=== PATIENT | male | born 1940 | race Caucasian/White ===

== ENCOUNTER → 2023-09-18 07:13 | Outpatient (REF) | payer MEDICARE, OTHER, SELFPAY ==
[2023-09-18 08:58] LABS: Albumin 4.7 g/dl (3.5-5.0); Blood Urea Nitrogen 43 mg/dl (9-20); Calcium 9.8 mg/dl (8.4-10.2); Carbon Dioxide 24 mmol/L (22-30); Chloride 104 mmol/L (98-107); Glucose 158 mg/dl (70-99); Phosphorus 4.2 mg/dl (2.5-4.5); Potassium 4.8 mmol/L (3.5-5.1); Sodium 135 mmol/L (135-145); Uric Acid 5.5 mg/dl (3.5-8.5); eGFR 34.57
[2023-09-18 09:19] LABS: Glycohemoglobin (HgbA1c) 7.3 % (4.0-5.6)
== END ==
LOC: HWLAB 07:13
PROVIDERS: ATTENDING PHYSICIAN Specialist; FAMILY PHYSICIAN Internal Medicine
DX: N18.31 Chronic kidney disease, stage 3a (principal); E11.8 Type 2 diabetes mellitus with unspecified complications
CPT/HCPCS: 36415; 80069; 83036; 84550

== ENCOUNTER → 2023-09-21 07:11 | Outpatient (REF) | payer MEDICARE, OTHER, SELFPAY ==
[2023-09-21 10:10] LABS: Blood Urea Nitrogen 46 mg/dl (9-20); Calcium 10.1 mg/dl (8.4-10.2); Carbon Dioxide 26 mmol/L (22-30); Chloride 101 mmol/L (98-107); Glucose 161 mg/dl (70-99); Potassium 4.9 mmol/L (3.5-5.1); Sodium 138 mmol/L (135-145); eGFR 36.89
== END ==
LOC: HWLAB 07:11
PROVIDERS: ATTENDING PHYSICIAN Specialist; FAMILY PHYSICIAN Internal Medicine
DX: I10 Essential (primary) hypertension (principal); E87.1 Hypo-osmolality and hyponatremia; N17.9 Acute kidney failure, unspecified
CPT/HCPCS: 36415; 80048

== ENCOUNTER 2023-11-03 13:35 | Inpatient (IN) | payer MEDICARE, OTHER, SELFPAY ==
[2023-11-02] VITALS (13 sets, daily range): BP systolic 100–156; BP diastolic 65–80; PULSE 95–119; BMI 29.8
[2023-11-02 12:04] LABS: Glucose - Point of Care 206 mg/dl (70-99)
[2023-11-02 12:15] LABS: % Basophils 0.4 % (0-2); % Eosinophils 0.9 % (0-6); % Immature Granulocytes 0.8 % (0-0.5); % Monocytes 5.8 % (1.7-9.3); % Neutrophils 78.1 % (42.2-75.2); Absolute Eosinophils 0.1 10^3/uL (0-0.7); Absolute Immature Granulocytes 0.1 10^3/uL (0-0.05); Absolute Lymphocytes 1.3 10^3/uL (1.2-3.4); Absolute Monocytes 0.5 10^3/uL (0.1-0.6); Absolute Neutrophils 7.2 10^3/uL (1.4-6.5); Hematocrit 32.7 % (39.0-52.0); Hemoglobin 11.2 g/dL (13.0-18.0); Mean Corp Hgb Conc. 34.3 g/dL (33.0-37.0); Mean Corpuscular Hgb 30.9 pg (27.0-31.0); Mean Corpuscular Volume 90.3 fL (80.0-94.0); Mean Platelet Volume 11.9 fL (7.4-10.4); Nucleated Red Blood Cells % 0 % (-); Platelet Count 147 10^3/uL (130-400); Red Blood Cell Count 3.62 10^6/uL (4.70-6.10); Red Cell Dist. Width 13.9 % (11.5-14.5); White Blood Cell Count 9.2 10^3/uL (4.8-10.8)
--- NOTE | 2023-11-02 12:23 | EDRN ---
the pt is resting in stretcher in the lowest position, side rails up x2, call salmeron within reach, HOB elevated, the pt states that he feels drowsy, the pt was placed on 2L NC due to Sp02 dipping to the 80's, this RN placed the pt on 2L NC and the pt
came up to 96% then dropped back down to 92%, this RN titrated the 02 up to 4L NC and Sp02 came up to 96%, the pt has no c/o SOB, no c/o chest pain or chest pressure, provider notified of the pts oxygenation status, will continue to monitor the pt
closely
[2023-11-02 12:33] LABS: ALT (SGPT) 19 U/L (0-50); AST (SGOT) 28 U/L (17-59); Albumin 4.1 g/dl (3.5-5.0); Alkaline Phosphatase 86 U/L (38-126); Blood Urea Nitrogen 34 mg/dl (9-20); Calcium 9.4 mg/dl (8.4-10.2); Carbon Dioxide 17 mmol/L (22-30); Chloride 107 mmol/L (98-107); Estimated Creatinine Clearance 33 ml/min; Glucose 198 mg/dl (70-99); Potassium 4.3 mmol/L (3.5-5.1); Sodium 134 mmol/L (135-145); Total Bilirubin 0.8 mg/dl (0.2-1.3); Total Protein 6.4 g/dl (6.3-8.2); eGFR 39.51
[2023-11-02 12:43] LABS: Troponin I < 0.012 ng/ml
--- NOTE | 2023-11-02 14:35 | EDRN ---
the pt is resting in stretcher in the lowest position, side rails up x2, call salmeron within reach, HOB elevated, no s/s of distress, the pt still appears to be fatigued and states to this RN, 'I just feel tired', VS WNL, no c/o chest pain, no c/o SOB,
the pt is currently NST in the low 100's, the pt is currently still on 4L NC Sp02 100%, will continue to monitor the pt closely
[2023-11-02] MEDS: NSS 500 IV (16:15)
--- NOTE | 2023-11-02 16:34 | ED.GENMED ---
History of Present Illness
General
Chief Complaint: Fainting/Passed Out
Source: patient
Time Seen by Provider: 11/02/23 12:40
Travel History
Have you had any contact with someone who has COVID-19?: No
Do you have any symptoms of coronavirus? Fever > 100 degrees, chills, cough, shortness of breath, sore throat, loss of taste or smell, muscle aches, or headache?: No
History of Present Illness
History of Present Illness:
83-year-old male who presents after a syncopal event. Patient states he was sitting golf balls when he started feel not quite well. He went to walk away and felt he needed to rest. He states he subsequently passed out. The patient states he does
sometimes get some discomfort in his chest where he has to belch he has had that over time and today he thinks he had a little bit of that while he was golfing. Patient now feels better. He denies fevers. No cough. He was found to be hypoxic on
arrival
Past History
Past History
ED Past Medical History: HTN and NIDDM
ED Past Surgical History: Tonsilectomy
Social History
Tobacco: Non-smoker
Alcohol: Occasional
Personal:
Living: with family
Family History
Family History: Unable to obtain
Phy Exam
Physical Exam
Physical Exam:
CONSTITUTIONAL Patient alert and oriented to person, place and time. Well-appearing. Vital signs reviewed.
HEAD atraumatic, normocephalic.
EYES eyelids normal to inspection, Extraocular muscles intact, Conjunctiva normal, Sclera normal.
NECK normal range of motion, Trachea midline, no jugular venous distention.
RESPIRATORY CHEST No respiratory distress noted, Chest expansion equal, Bilateral breath sounds clear.
CARDIOVASCULAR regular rate and rhythm, loud systolic murmur noted.
ABDOMEN abdomen nontender, Bowel sounds normal. No distention.
BACK normal inspection, no obvious deformities
UPPER EXTREMITY range of motion normal, Motor strength normal, no cyanosis, no edema.
LOWER EXTREMITY range of motion normal, Motor strength normal, no cyanosis, no edema.
NEURO Speech normal, No focal motor deficits, Terence coma scale 15, Memory normal, Cranial Nerves intact to screening exam.
SKIN skin warm, dry, and normal in color.
Course
Orders/Labs/Results
Orders:
Orders
11/02/23 11:58
Electrocardiogram (*1) Urgent
Reason for Study: Vertigo / Dizzy
EKG- Treatment ONCE
Orthostatic Vital Signs As Directed
Orthostatic VS Frequency: Now
11/02/23 12:00
Complete Blood Count/With Diff Urgent
Comprehensive Metabolic Panel Urgent
Troponin I Urgent
11/02/23 13:00
CXR2 [CR Chest - 2 Views ] Urgent
Comment:
Reason For Exam: shortness of breath
11/02/23 13:25
Electrocardiogram (*1) Urgent
Reason for Study: Syncope
EKG- Treatment ONCE
11/02/23 14:09
CT Chest Pe Study Urgent
Comment:
Reason For Exam: syncope, hypoxia
11/02/23 Dinner
1800 calorie (15 carb) Diabetic
At Your Request: Limited Participation
11/02/23 16:00
0.9% Sodium Chloride 500 ml [Nss] 500 ml IV BOLUS
11/02/23 17:43
Admit/Transfer Patient As Directed
Co-Sign Provider:
Level of Care: Observation services
Assign to:: Telemetry
Physician / Group: Emely
Diagnosis: Syncope
Reason for Telemetry: Syncope
Date to Stop Telemetry: 11/04/23
Time to Stop Telemetry: 11:00
11/02/23 17:45
Code Status As Directed
Resuscitation Status: Full Code
11/02/23 19:20
Acetaminophen [Tylenol] 650 mg PO Q6HPRN PRN
Bethanechol [Urecholine] 25 mg PO BID@1000,1900
11/02/23 19:20
Echo 2D MMode Color/Doppler [Echo 2D MMode Color/Doppler] Routine
Reason for Study: Syncope
Activity As Directed
Activity Level: Ambulate
Orthostatic Vital Signs As Directed
Orthostatic VS Frequency: Daily
DX Deep Vein Thrombosis Video Routine
11/02/23 19:52
Troponin I Routine
11/02/23 20:00
Glipizide [Glucotrol] 10 mg PO BID AT 0800,1700
Heparin 5,000 units SC Q12
11/03/23 06:00
Basic Metabolic Panel IN AM
11/03/23 08:00
Allopurinol [Zyloprim] 300 mg PO DAILY
Doxazosin Mesylate [Cardura] 2 mg PO DAILY
Finasteride [Proscar] 5 mg PO DAILY
Losartan [Cozaar] 12.5 mg PO DAILY
Sitagliptin Phosphate [Januvia] 50 mg PO DAILY
11/04/23 11:00
DC Protocol for Telemetry ONCE
Abnormal Lab Results
11/02/23
12:00
RBC 3.62 L 10^6/uL
(4.70-6.10)
Hgb 11.2 L g/dL
(13.0-18.0)
Hct 32.7 L %
(39.0-52.0)
MPV 11.9 H fL
(7.4-10.4)
Abs Immat Gran (auto) 0.1 H 10^3/uL
(0-0.05)
Absolute Neuts (auto) 7.2 H 10^3/uL
(1.4-6.5)
Immature Gran % 0.8 H %
(0-0.5)
Neutrophils % 78.1 H %
(42.2-75.2)
Lymphocytes % 14.0 L %
(20.5-51.1)
Sodium 134 L mmol/L
(135-145)
Carbon Dioxide 17 L mmol/L
(22-30)
BUN 34 H mg/dl
(9-20)
Creatinine 1.7 H mg/dL
(0.7-1.3)
Glucose 198 H mg/dl
(70-99)
POC Glucose 206 H mg/dl
(70-99)
11/02/23 12:00
11/02/23 12:00
Vital Signs
Initial and Last Documented VS:
Initial Vital Signs
Temp Pulse Resp BP Pulse Ox
97.6 F 100 16 156/79 96
11/02/23 11:59 11/02/23 11:59 11/02/23 11:59 11/02/23 11:59 11/02/23 11:59
Last Documented Vital Signs
Temp Pulse Resp BP Pulse Ox
98.9 F 114 20 100/65 95
11/02/23 19:48 11/02/23 19:48 11/02/23 19:48 11/02/23 19:48 11/02/23 19:48
MDM/Problems Addressed
MDM/Problems Addressed:
Syncope, valvulopathy (suspected aortic stenosis), mild hypoxia
*Radiology
Radiology exam reviewed: radiology read reviewed
*Pulse Oximetry
Patient hypoxic: yes
*EKG
Interpreted by ED Provider?: Yes
Interpretation: abnormal
Rate: tachycardiac
Rhythm: sinus
[place]: normal axis
Ischemia: non-specific ST changes
*Die Press Operator Interpretation
Rate: tachycardiac
Interpretation: abnormal
Rhythm: sinus
*Critical Care Note
Total Time (30-74mins, 75-104mins- exclusive of procedures): 30 minutes
Data Reviewed
Source: patient and family
Patient Management
Discussion with other providers: Hospitalist
Escalation/DeEscalation of care consider admission/obs:
53-year-old male presents after syncope. Found to have a loud systolic murmur that I suspect is . Likely complicated syncope. Could have been a vasovagal event and was hot outside today. IV fluids given. Unsure clear why he has a little bit
hypoxia whether this is baseline or not as he does not feel short of breath. Admit. Likely can benefit from an echocardiogram
ED Attending Note
-
Portions of this chart may have been created with voice recognition software.� Occasional wrong word or��sound alike� substitutions may have occurred due to the inherent limitations of voice recognition software.
Discharge Plan
Departure
Patient Disposition: Admit
Date of Disposition: 11/02/23
Time of Disposition: 16:34
Admit to: Telemetry
Presentation/result/management discussed w/ accepting MD/DO: Hospitalist
Discharge Problem:
Syncope, Aortic stenosis
Interventions
Interventions:
*Risk Screen - Suicide Last Done: 11/02/23 11:59
*General Assessment Last Done: 11/02/23 11:59
*Neglect/Abuse Screening Last Done: 11/02/23 11:59
ED- Fall Risk Assessment Last Done: 11/02/23 11:59
*ED COVID-19 Vaccine History Last Done: 11/02/23 11:59
*Nursing Disposition Last Done: 11/02/23 19:16
ED- Cardiac Assessment Last Done: 11/02/23 11:59
ED- Neurological Assessment Last Done: 11/02/23 11:59
Discharge Date and Time
Discharge Date/Time: 11/02/23 19:17
--- NOTE | 2023-11-02 17:48 | HPS.HSE ---
Family Physician
-
Family Physician: Jordon Burt
Chief Complaint
-
Syncope
History of Present Illness
83-year-old male was out at the shooting range playing golf today when he felt weak, vague chest discomfort, sat down and passed out. Not a very good historian. May have had some lightheadedness. Denies any shortness of breath. Later on
developed nausea. Did not have vomiting. [place] sweaty but he attributed it to the heat outside.
Medical History
Past Medical History
Past Medical History: Reports Other
Additional Past Medical History:
DM2
Essential hypertension
CKD 3B
Gout
Past Surgical History: Reports Other
Additional Past Surgical History:
TURP -March 2022
Tonsillectomy
Social History
Tobacco: Non-smoker
Alcohol: Occasional
Drug: None
Family History
Family History: Not pertinent
Allergies / Home Medications
Allergies reflects when Allergies were last updated in [facility].
Home Medications with original date entered in [facility]
Allergy/Medication List:
Allergies
Allergy/AdvReac Type Severity Reaction Status Date / Time
No Known Allergies Allergy Verified 03/27/22 09:14
Home Medications
allopurinol 300 mg tablet 300 mg PO DAILY Gout 02/08/22
amlodipine 10 mg tablet 5 mg PO DAILY Blood pressure 02/08/22
glipizide 10 mg tablet 10 mg PO BID Diabetes 02/08/22
metformin 500 mg tablet 1,000 mg PO BID Diabetes 02/08/22
sitagliptin phosphate 100 mg tablet (Januvia) 50 mg PO DAILY Diabetes 02/08/22
bethanechol chloride 25 mg tablet 25 mg PO BID@1000,1900 prostate 11/02/23
doxazosin 1 mg tablet 2 mg PO DAILY prostate 11/02/23
finasteride 5 mg tablet 5 mg PO DAILY prostate 11/02/23
losartan 25 mg tablet 12.5 mg PO DAILY Blood Pressure 11/02/23
Review of Systems
-
History Source: Patient
A 12 point ROS was completed and negative except as noted: Yes
Cardiac: Reports Chest Pain
Physical Exam
Vital Signs
Vital Signs
Temp Pulse Resp BP Pulse Ox
97.8 F 95 15 113/80 95
11/02/23 14:32 11/02/23 17:00 11/02/23 17:00 11/02/23 15:17 11/02/23 17:00
Physical Exam
General: Well Developed, Well Nourished, No Apparent Distress and Comfortable
HEENT: NormoCephalic, Anicteric and Moist mucous membranes
Respiratory: Clear
Cardiac: S1/S2, Regular Rhythm and Murmur (Systolic murmur left renal border)
GI: Soft, Non Tender and Non Distended
Rectal: Brown
Genito-urinary: Deferred by me
Musculoskeletal: No Clubbing, No Cyanosis and No Edema
Skin: Warm and Dry
Neuro: AO x 3
Hematologic/Lymphatic: No Lymphadenopathy
Psych: Calm
Laboratory Results
-
11/02/23 12:00
11/02/23 12:00
Laboratory Results
Total Bilirubin 0.8 mg/dl (0.2-1.3) 11/02/23 12:00
AST 28 U/L (17-59) 11/02/23 12:00
ALT 19 U/L (0-50) 11/02/23 12:00
Alkaline Phosphatase 86 U/L (38-126) 11/02/23 12:00
Troponin I < 0.012 ng/ml 11/02/23 12:00
Impression/Plan
-
Syncope -suspect vasovagal etiology but given loud murmur will check echocardiogram. Troponin negative so far. Admit to telemetry. Check orthostatic vitals. No history of syncope in the past. Denies cardiac history.
Hyponatremia -possibly hypovolemic. Fluid bolus in the emergency room. Repeat labs in the morning.
DM2 with hyperglycemia -glucose 206 on Accu-Chek in the emergency room. He is on glipizide, Januvia, metformin at home. Hemoglobin A1c was 7.3% in September.
Essential hypertension -stable.
Gout -stable.
BPH
Normocytic anemia -likely chronic. Follow-up as outpatient.
Full code
--- NOTE | 2023-11-02 19:20 | PTCARENOTE ---
Pt received from ED to 419-1. Pt oriented to room and call salmeron.
[2023-11-02] MEDS: URECHOLINE 25 MG PO (20:07)
[2023-11-02] MEDS: GLUCOTROL PO (20:09)
[2023-11-02 20:27] LABS: Troponin I 0.708 ng/ml
[2023-11-03] VITALS (11 sets, daily range): BP systolic 114–138; BP diastolic 68–91
[2023-11-03] MEDS: GLUCOTROL 10 MG PO ×2 (07:58→17:17)
[2023-11-03] MEDS: PROSCAR 5 MG PO (07:58)
[2023-11-03] MEDS: CARDURA 2 MG PO (08:01)
[2023-11-03] MEDS: COZAAR 12.5 MG PO (08:01)
[2023-11-03] MEDS: ZYLOPRIM 300 MG PO (08:02)
[2023-11-03] MEDS: JANUVIA 50 MG PO (08:02)
[2023-11-03 08:08] LABS: Blood Urea Nitrogen 29 mg/dl (9-20); Calcium 9.9 mg/dl (8.4-10.2); Carbon Dioxide 21 mmol/L (22-30); Chloride 106 mmol/L (98-107); Estimated Creatinine Clearance 40 ml/min; Glucose 117 mg/dl (70-99); Potassium 4.8 mmol/L (3.5-5.1); Sodium 136 mmol/L (135-145); eGFR 45.91
--- NOTE | 2023-11-03 10:25 | PTCARENOTE ---
11/02- Patient c/o very mild midsternal Chest Pain. Skin=pink/dry, no diaphoresis or clamminess currently observed. HR=92, RR=14, DW=888/82, POX=97% on RA. Patient is currently NSR on Telemetry but did have 2 self-resolving runs of SVTs overnight
and earlier this morning. 12-lead EKG shows Septal ST abnormality but otherwise NSR. Physician is aware- see further orders.
--- NOTE | 2023-11-03 10:30 | W.PN.HOSP.TC ---
Addendum entered and electronically signed by Raphael Han DO 11/03/23 13:00:
I spoke with and updated Marilin on the phone. All questions answered.
Addendum entered and electronically signed by Raphael Han DO 11/03/23 10:47:
I left a voicemail for patient's sister named Marilin to call me back. [phone].
Original Note:
Today's Communication/Plan
-
Urgent cardiology consult
Aspirin
Echocardiogram
N.p.o.
Assessment / Plan
Assessment / Plan
Gen-AAOx3, NAD
HEENT-NC, AT, anicteric, clear oral mm
Neck-supple
CV-reg, loud systolic murmur, +S1/S2
Lungs-clear B/L
Abd-soft, NT, ND
Ext-no edema
Musculoskeletal-no cyanosis, clubbing
Skin-warm and dry
Neuro-grossly non-focal
Psych-calm, cooperative
NSTEMI -rising troponin. Cardiology urgent consult. Aspirin started. Anticipate cardiac catheterization today. Check echocardiogram. Patient states he did not eat today.
Syncope -suspect due to ischemia from acute PA, nonsustained V. tach noted on monitor. Discussed with cardiology. Not orthostatic based on vitals.
Hyponatremia -resolved.
DM2 with hyperglycemia -glucose 117 this morning. He is on glipizide, Januvia, metformin at home. Hemoglobin A1c was 7.3% in September.
CKD 3B - renal function appears to be at baseline.
Essential hypertension -stable.
Gout -stable.
BPH
Normocytic anemia -likely chronic. Follow-up as outpatient.
Full code
Anticipated Discharge: > 48 hours
Subjective/Interval History
-
Date of Service: November 03, 2023
Patient seen and examined. Currently has no symptoms. States he had vague and mild chest pain early this morning that resolved. No shortness of breath.
Objective Data
-
Labs:
Laboratory Results
11/03/23 11/03/23
05:54 10:29
APTT Pending
Sodium 136
Potassium 4.8
Chloride 106
Carbon Dioxide 21 L
BUN 29 H
Creatinine 1.5 H
Glucose 117 H
Calcium 9.9
Vital Signs:
Vital Signs
Temp Pulse Resp BP Pulse Ox
97.8 F 82 18 126/68 98
11/03/23 07:00 11/03/23 07:00 11/03/23 07:00 11/03/23 07:00 11/03/23 08:00
Review of Systems
-
History Source: Patient
All other systems: Reviewed and negative
--- NOTE | 2023-11-03 10:32 | CON.CAR ---
Addendum entered and electronically signed by Bacilio Suarez MD 11/03/23 11:38:
Patient seen and examined in collaboration with AIR MOTOR REPAIRER; agree with below.
-Functional 83-year-old male with hypertension, diabetes, and CKD admitted after a syncopal event while [place]
-Patient was found to have elevated cardiac enzymes consistent with an NSTEMI in addition to recurrent runs of NSVT.
-Notable murmur on examination, likely some significant degree of .
-Will obtain an echocardiogram now to thoroughly assess cardiac function.
-Patient will undergo cardiac catheterization later today for ischemic evaluation and to evaluate aortic stenosis, if indicated.
-The patient could ultimately need an ICD for secondary prevention.
-Continue beta-esa and surveillance monitor.
Original Note:
Consultation
Consultation Request
Date/Time Consultation Requested: 11/03/2023 10:18
Date/Time Consultation Performed: 11/03/2023 10:30
Requesting Provider: Dr. Han
Performing Provider: CECY Godfrey for Dr. Suarez
Reason for Consultation: Syncope
Medical History
-
Chief Complaint: Syncope
History of Present Illness:
Eleazar Ortega is an 83-year-old male who is an avid golfer formerly working for [employer] with BPH, gout, chronic kidney disease, hypertension, and type 2 diabetes mellitus who had syncope at the driving range. He did feel some vague chest discomfort
and weakness prior to his syncope. After he resumed consciousness he reports he felt nauseous and sweaty but did not have emesis. He thought this was all related to the heat. Troponin on arrival <0.012. It is trending up and is currently 5.350.
He also had NSVT on telemetry. He is currently chest pain-free. The plan is for cardiac catheterization today.
Past Medical History
Past Medical History: HTN, NIDDM, Renal Failure (CKD) and Other (BPH, Gout)
Past Surgical History: Urological
Social History
Tobacco: Non-Smoker
Alcohol: Occasional
Drug: None
Personal: (06/2023 due to breast ca)
Employment: Retired ([employer])
Family History
Family History: CAD (Father and borther perry 60s due to MIs.) and Other (Mother in 40s after childbirth.)
Allergies / Home Medications
Allergy/AdvReac Type Severity Reaction Status Date / Time
No Known Allergies Allergy Verified 03/27/22 09:14
�Medication �Instructions �Recorded �Confirmed �Type
allopurinol 300 mg tablet 300 mg PO DAILY Gout 02/08/22 11/02/23 History
amlodipine 10 mg tablet 5 mg PO DAILY Blood pressure 02/08/22 11/02/23 History
glipizide 10 mg tablet 10 mg PO BID Diabetes 02/08/22 11/02/23 History
metformin 500 mg tablet 1,000 mg PO BID Diabetes 02/08/22 11/02/23 History
sitagliptin phosphate 100 mg 50 mg PO DAILY Diabetes 02/08/22 11/02/23 History
tablet (Januvia)
bethanechol chloride 25 mg tablet 25 mg PO BID@1000,1900 prostate 11/02/23 11/02/23 History
doxazosin 1 mg tablet 2 mg PO DAILY prostate 11/02/23 11/02/23 History
finasteride 5 mg tablet 5 mg PO DAILY prostate 11/02/23 11/02/23 History
losartan 25 mg tablet 12.5 mg PO DAILY Blood Pressure 11/02/23 11/02/23 History
Review of Systems
-
History Source: Patient
All other systems: Negative unless noted
EENT: No Symptoms
Respiratory: No Symptoms
Cardiac: No Symptoms
Abdomen/GI: No Symptoms
Physical Exam
Vital Signs
Temp Pulse Resp BP Pulse Ox
97.8 F 82 18 126/68 98
11/03/23 07:00 11/03/23 07:00 11/03/23 07:00 11/03/23 07:00 11/03/23 08:00
Lab Results
11/02/23 12:00
11/03/23 05:54
Troponin I 5.350 ng/ml H* D 11/03/23 05:54
Physical Exam
General: Well Developed, Well Nourished, No Apparent Distress and Comfortable
HEENT: Normocephalic, Anicteric and Moist Mucous Membranes
Respiratory: Clear and Non Labored Respirations
Cardiac: S1/S2, Regular Rhythm and Murmur (DEVEN II/ )
Breast: Deferred by me
GI: Soft, Non Tender, Non Distended and Normal Bowel Sounds
Rectal: Deferred by Provider
Genito-urinary: No Costovertebral Tender
Musculoskeletal: No Clubbing, No Cyanosis and No Edema
Skin: Warm and Dry
Neuro: AO x 3
Hematologic/Lymphatic: No Lymphadenopathy
Psych: Calm
Impression / Plan
-
Syncope, with NSTEMI and NSVT on telemetry, plan as below
NSTEMI
-Currently chest pain-free
-Aspirin 324 mg x 1 now on 81 mg daily
-Metoprolol tartrate started in the setting of NSVT
-Lipid profile pending
-He should work on improving his hemoglobin A1c
-Echocardiogram today
-Cardiac catheterization today
NSVT, start metoprolol tartrate 25 mg twice daily
Type 2 diabetes mellitus, HgbA1c 7.3%
BPH
Macular edema with retinopathy, injections q6 weeks
Data Reviewed
-
EKG: Report Reviewed by me (Sinus rhythm, T wave inversion in lateral leads, rate 88)
Radiology: Report Reviewed by me (CXR: Findings concerning for mild right lower lobe pneumonia. New.)
CT Scan: Report Reviewed by me (Chest: No CTA evidence for an acute pulmonary thromboembolism. Moderate to severe calcifications of the coronary arteries and aortic valve.)
Labs: Labs Reviewed by me
Old Records: Reviewed
[2023-11-03] MEDS: LOW STRENGTH ASPIRIN 324 MG PO (10:56)
[2023-11-03] MEDS: URECHOLINE 25 MG PO ×2 (10:58→20:49)
[2023-11-03] MEDS: HEPARIN 25000 UNITS/250 ML IV (11:00)
[2023-11-03] MEDS: HEPARIN 4000 UNITS IV (11:08)
[2023-11-03 11:18] LABS: HDL Cholesterol 72 mg/dl; LDL Cholesterol, Calculated 43 mg/dl; Total Cholesterol 124 mg/dl (50-199); Triglyceride 45 mg/dl (10-149); Very Low Density Lipoprotein 9 mg/dl (0-30)
[2023-11-03] MEDS: LOPRESSOR 25 MG PO (11:34)
[2023-11-03 12:23] LABS: APTT 33.8 Sec (23.4-35.0)
[2023-11-03 13:45] LABS: ACT-LR - POC 258 Seconds (116-155)
[2023-11-03 13:57] LABS: ACT-LR - POC 398 Seconds (116-155)
--- NOTE | 2023-11-03 14:14 | CM ---
Patient off floor for testing.
[2023-11-03] MEDS: TYLENOL 650 MG PO (15:56)
--- NOTE | 2023-11-03 16:11 | ITS.CL.CATH ---
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
Cardiac Catheterization
Procedure Report:
CARDIAC CATHETERIZATION REPORT
Date of Procedure: 11/03/2023
Referring: Bacilio Suarez MD
Indication: Non-STEMI, NSVT with syncope
HEMODYNAMIC DATA
AO: 103/68
LV: 155/12
Unable to calculate mean gradient across aortic valve which is likely greater than 40 mmHg
LEFT VENTRICULOGRAPHY: Severe apical and mild distal anterolateral hypokinesis with EF 42%. There is severe MAC with trace MR
CORONARY ANGIOGRAPHY
Dominance: Right
Left Main: Normal
LAD: 30% mid LAD stenosis distal to the takeoff of D2. There is 99% distal LAD stenosis with ELVIA grade II flow distal to the lesion. The large first diagonal branch has 70-80% ostial/proximal stenosis
Circumflex: 50-60% mid circumflex stenosis distal to the takeoff of the small OM1 and huge OM 2 and proximal to the takeoff of the tiny OM 3 and terminal medium sized OM 4 . The large OM 2 has 30% proximal stenosis
RCA: The RCA has a high anterior takeoff that required cannulation with an AL-1 diagnostic catheter. This vessel has mild luminal disease proximally and there is a short focal 70-80% stenosis distally proximal to the takeoff of the small PDA. The
acute marginal branch supplies the distal PDA territory. The RCA terminates with a small RPL 1 and a medium sized RPL 2
Angioplasty: At the conclusion of the diagnostic study we proceeded with PCI of the 99% distal LAD lesion and the 70-80% ostial/proximal D1 lesion. Heparin was used for anticoagulation. Brilinta 180 mg was chewed on the table prior to the
intervention. A 6 [place] EBU 3.75 guide catheter provided excellent backup support. A BMW wire was advanced into the LAD but would not cross the 99% distal lesion. A hydrophilic whisper wire was then advanced into the LAD and successfully crossed
the lesion. Predilatation was accomplished with a 2.0 x 12 Euphora balloon to 6 daniel. We then placed a 2.75 x 18 [place] SOBIA which was deployed at 14 daniel and postdilated with a 2.75 NC Euphora to 17 daniel. The final angiographic result was outstanding.
The first diagonal branch was wired with a BMW wire. The 2.0 x 12 Euphora balloon was used to predilate that lesion to the 10 daniel. We then placed a 2.5 x 15 [place] SOBIA which was deployed at 14 daniel then postdilated with a 2.5 NC Euphora to 17 daniel.
Angiographic result was outstanding. There were no procedural complications.
Closure Device: None-the procedure was performed via the right radial artery. The Seng's test was normal prior to the procedure.
Radiation (mGy): 675
DAP (cm2.Gy): 42.7
Fluoroscopy time: 14.1 minutes
CONCLUSIONS
1: Severe aortic stenosis
2: Severe apical and mild distal anterolateral hypokinesis with EF 42%
3. Multivessel CAD as described
4. Successful stenting of 99% distal LAD lesion using 2.75 x 18 [place] SOBIA
5. Successful stenting of 70-80% ostial/proximal D1 lesion using 2.5 x 15 [place] SOBIA
6. Recommend dual antiplatelet therapy for 12 months
7. Treat distal RCA disease medically for now although this can be stented if symptoms persist
8. Recommend evaluation for TAVR if symptoms persist as an outpatient. Otherwise follow patient clinically and with serial echocardiograms until symptoms are present
9. Given presentation with syncope and significant NSVT, consider EP evaluation to determine whether ICD is appropriate therapy at this time
Copy to: Bacilio Suarez MD, Jordon Burt MD
Eliot Kelley MD, [facility], [facility]
--- NOTE | 2023-11-03 16:54 | CM ---
spoke to pt in room, criss is pre vindep, lives with her husb in a split level home with no steps to enter. she has a cpap at home. no dc planning needs noted. plan is for dc to home when medically stable.
--- NOTE | 2023-11-03 16:57 | CM ---
spoke to pt in room, he is prev indep, lives alone in a 2 story townhouse with 2 steps to enter. he denies any dc planning needs. he has a cane and a walker at home to use if needed. plan is for dc to home when medically stable.
[2023-11-03] MEDS: LIPITOR 20 MG PO (17:17)
[2023-11-03 17:26] LABS: Glucose - Point of Care 307 mg/dl (70-99)
--- NOTE | 2023-11-03 18:00 | PTCARENOTE ---
Pt received at 1445 post cath. Right rad band intact with no oozing or hematoma. Pt denies any chest pain or sob. Pt c/o of left lower back pain, medicated with 650mg of tylenol with complete relief. Pt briefly oob to the chair for dinner.
[2023-11-03] MEDS: COREG 6.25 MG PO (20:48)
[2023-11-03 22:09] LABS: Glucose - Point of Care 154 mg/dl (70-99)
[2023-11-04 02:55] VITALS: BP 133/81
[2023-11-04 03:15] LABS: Hematocrit 37.7 % (39.0-52.0); Hemoglobin 12.8 g/dL (13.0-18.0); Mean Corpuscular Hgb 31.2 pg (27.0-31.0); Mean Platelet Volume 11.8 fL (7.4-10.4); Platelet Count 158 10^3/uL (130-400); Red Cell Dist. Width 13.6 % (11.5-14.5); White Blood Cell Count 9.8 10^3/uL (4.8-10.8)
[2023-11-04 03:38] LABS: Blood Urea Nitrogen 29 mg/dl (9-20); Calcium 9.5 mg/dl (8.4-10.2); Carbon Dioxide 23 mmol/L (22-30); Chloride 106 mmol/L (98-107); Estimated Creatinine Clearance 43 ml/min; Glucose 146 mg/dl (70-99); Potassium 4.4 mmol/L (3.5-5.1); Sodium 135 mmol/L (135-145); eGFR 49.87
[2023-11-04 07:12] VITALS: BP 139/85
[2023-11-04 07:14] LABS: Glucose - Point of Care 184 mg/dl (70-99)
[2023-11-04] MEDS: CARDURA 2 MG PO (07:52)
[2023-11-04] MEDS: JANUVIA 50 MG PO (07:53)
[2023-11-04] MEDS: COZAAR 12.5 MG PO (07:53)
[2023-11-04] MEDS: GLUCOTROL 10 MG PO ×2 (07:53→17:45)
[2023-11-04] MEDS: LOW STRENGTH ASPIRIN 81 MG PO (07:53)
[2023-11-04] MEDS: COREG 6.25 MG PO ×2 (07:53→20:15)
[2023-11-04] MEDS: PROSCAR 5 MG PO (07:54)
[2023-11-04] MEDS: ZYLOPRIM 300 MG PO (07:54)
[2023-11-04] MEDS: PLAVIX 600 MG PO (07:57)
--- NOTE | 2023-11-04 08:30 | W.PN.HOSP.TC ---
Today's Communication/Plan
-
Add low resistance scale NovoLog
Await cardiology input
Assessment / Plan
Assessment / Plan
Gen-AAOx3, NAD
HEENT-NC, AT, anicteric, clear oral mm
Neck-supple
CV-reg, loud systolic murmur, +S1/S2
Lungs-clear B/L
Abd-soft, NT, ND
Ext-no edema
Musculoskeletal-no cyanosis, clubbing
Skin-warm and dry
Neuro-grossly non-focal
Psych-calm, cooperative
NSTEMI -underwent cardiac catheterization November 02 with stenting of LAD lesion, D1 lesion, medical treatment recommended for distal RCA lesion. LVEF 42% with mild distal anterior lateral hypokinesis. Severe aortic stenosis. Continue dual
antiplatelet therapy.
Echocardiogram shows LVEF 40%, mid to distal anterior, apical, apical septal, and distal inferior akinesis/dyskinesis with aneurysmal formation of the apex.
Severe aortic stenosis - possible contributor to syncope. Eventual TAVR as an outpatient per cardiology. Aortic valve area 0.9 cm�.
Syncope -suspect due to ischemia from acute [place], nonsustained V. tach noted on monitor. Discussed with cardiology. Not orthostatic based on vitals.
Cardiology planning on ICD this admission.
Hyponatremia -resolved.
DM2 with hyperglycemia -glucose 146 this morning. He is on glipizide, Januvia, metformin at home. Currently on glipizide and Januvia, add low resistance NovoLog scale. Hemoglobin A1c was 7.3% in September. Hold metformin for 48 hours given IV
contrast exposure with catheterization yesterday.
CKD 3B - renal function appears to be at baseline.
Essential hypertension -stable.
Gout -stable.
BPH
Normocytic anemia -likely chronic. Follow-up as outpatient.
Full code
Anticipated Discharge: 24 - 48 hours
Subjective/Interval History
-
Date of Service: November 04, 2023
Patient seen and examined. Short of breath last night but currently denies shortness of breath. Denies chest pain.
Objective Data
-
Labs:
Laboratory Results
11/04/23
03:05
WBC 9.8
Hgb 12.8 L
Hct 37.7 L
Plt Count 158
Sodium 135
Potassium 4.4
Chloride 106
Carbon Dioxide 23
BUN 29 H
Creatinine 1.4 H
Glucose 146 H
Calcium 9.5
Vital Signs:
Vital Signs
Temp Pulse Resp BP Pulse Ox
99.1 F 96 20 139/85 97
11/04/23 07:10 11/04/23 07:45 11/04/23 07:10 11/04/23 07:12 11/04/23 07:10
I&O
11/03/23 11/04/23 11/05/23
06:59 06:59 06:59
Intake Total 480 / 480
Balance 480 / 480
Review of Systems
-
History Source: Patient
All other systems: Reviewed and negative
--- NOTE | 2023-11-04 08:33 | W.PN.CD ---
Today's Communication / Plan
-
- Uptitrate beta blockers.
- Plan for ICD tomorrow
- Plavix loading today - plan for 12 months of DAPT
Impression / Plan
-
Syncope, with out of hospital cardaic arrest and noted to have NSTEMI and NSVT on telemetry, plan as below
Cardiac arrest:
- Out of hospital cardiac arrest
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
- RCA not treated - chronic disease
- NSVT - frequent symptomatic VT noted
- Recommend ICD prior to discharge
- Metoprolol - switched to Coreg 6.25 mg BID and uptitrate as tolerated.
NSTEMI
-s/p LHC and PCI on 11/03/23
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
- Residual RCA disease.
- LVEF 40%- ECHO 11/03/23: LVEF 40%. 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
- DAPT for 12 months.
- Loading with Plavix and on ASA
Aortic stenosis
- ECHO 11/03/23: LVEF 40%. Severe aortic stenosis; peak/mean gradients across the aortic valve are 60/37 mmHg, calculated GAYLA 0.9 cm2.
- TAVR work up as outpatient.
Type 2 diabetes mellitus, HgbA1c 7.3%
BPH
Macular edema with retinopathy, injections q6 weeks
____
ECHO 11/03/23:
-Left ventricular ejection fraction is approximately 40%. Mid to distal
anterior, apical, apical septal, and distal inferior akinesis/dyskinesis with
aneurysmal formation at the apex.
-Normal right ventricular size and function.
-Severe aortic stenosis; peak/mean gradients across the aortic valve are 60/37
mmHg, calculated GAYLA 0.9 cm2.
C - 11/03/23: CORONARY ANGIOGRAPHY
Dominance: Right
Left Main: Normal
LAD: 30% mid LAD stenosis distal to the takeoff of D2. There is 99% distal LAD stenosis with ELVIA grade II flow distal to the lesion. The large first diagonal branch has 70-80% ostial/proximal stenosis
- PCI to distal LAD and D1.
Circumflex: 50-60% mid circumflex stenosis distal to the takeoff of the small OM1 and huge OM 2 and proximal to the takeoff of the tiny OM 3 and terminal medium sized OM 4 . The large OM 2 has 30% proximal stenosis
RCA: The RCA has a high anterior takeoff that required cannulation with an AL-1 diagnostic catheter. This vessel has mild luminal disease proximally and there is a short focal 70-80% stenosis distally proximal to the takeoff of the small PDA. The
acute marginal branch supplies the distal PDA territory. The RCA terminates with a small RPL 1 and a medium sized RPL 2
1: Severe aortic stenosis
2: Severe apical and mild distal anterolateral hypokinesis with EF 42%
3. Multivessel CAD as described
4. Successful stenting of 99% distal LAD lesion using 2.75 x 18 [place] SOBIA
5. Successful stenting of 70-80% ostial/proximal D1 lesion using 2.5 x 15 [place] SOBIA
6. Recommend dual antiplatelet therapy for 12 months
7. Treat distal RCA disease medically for now although this can be stented if symptoms persist
8. Recommend evaluation for TAVR
Physical Exam
Vital Signs/Labs
Vital Signs
Temp Pulse Resp BP Pulse Ox
99.1 F 96 20 139/85 97
11/04/23 07:10 11/04/23 07:45 11/04/23 07:10 11/04/23 07:12 11/04/23 07:10
11/03/23 11/04/23 11/05/23
06:59 06:59 06:59
Actual Weight 88.961 kg
11/04/23 03:05
11/04/23 03:05
APTT 33.8 Sec (23.4-35.0) 11/03/23 12:03
Triglycerides 45 mg/dl (10-149) 11/03/23 05:54
LDL Cholesterol, Calc 43 mg/dl 11/03/23 05:54
VLDL Cholesterol, Calc 9 mg/dl (0-30) 11/03/23 05:54
HDL Cholesterol 72 mg/dl 11/03/23 05:54
LAB Results
11/02/23 11/02/23 11/03/23
12:00 19:52 01:57
Troponin I < 0.012 0.708 H* D 3.530 H* D
11/03/23 11/03/23 11/03/23
05:54 12:03 20:10
Troponin I 5.350 H* D 6.410 H* 4.330 H*
Physical Exam
Constitutional: No acute distress and Comfortable
EENT: Anicteric and Moist mucous membranes
Cardiovascular: Rhythm & rate is regular, Pedal edema is absent and Systolic murmur present
Respiratory: Respiratory effort normal, Lungs clear to auscul. and Crackles Absent
GI: Soft, Non tender and Normal bowel sounds
Neuro/Psych: Alert, Oriented and AO x 3
Other: Cath Site
Data Reviewed
-
Date of Service: November 04, 2023
Medical Decision Making: Reviewed Test Results, Independent Historian Assessment and Test Interpretation
EKG: Tracing Personally Visualized and interpreted
Echo: Report Reviewed by me
X-Ray/CT/US/MRI/NUC/PET: Image Personally Visualized and interpreted
Labs: Labs Reviewed by me
Old Records: Reviewed
Total Time Spent with Patient (in minutes): 50
--- NOTE | 2023-11-04 09:17 | PTCARENOTE ---
Assumed care of pt from night RN. Pt received awake and alert, Ox3. VSs, CM shows NSR 70's with murmur, POX 97% on RA. Right radial site remains CDI with normal CMS. Plavix 600 mg given as per SEP. Plan is for ICD tomorrow. Pt denies any pain
or discomfort at this time.
[2023-11-04] MEDS: URECHOLINE 25 MG PO ×2 (11:00→18:37)
[2023-11-04 11:29] VITALS: BP 122/84
--- NOTE | 2023-11-04 12:25 | CM ---
CM following for DC planning needs.
Met w/ patient and friend at bedside.
Reviewed role of CM.
Pt. is anticipating procedure 11/04 and is hopeful for DC soon after.
Pt. resides alone in a private, 2 story home w/ 2 YVETTE.
Functionally, patient is indep. w/ ADLs, mobility with use of a RW, SPC.
Goal is for home once medically stable.
CM to follow.
[2023-11-04 12:55] LABS: Glucose - Point of Care 118 mg/dl (70-99)
[2023-11-04] MEDS: NOVOLOG FLEXPEN-LOW RESISTANCE SC (12:55)
[2023-11-04 16:16] VITALS: BP 121/69
[2023-11-04 17:29] LABS: Glucose - Point of Care 166 mg/dl (70-99)
[2023-11-04] MEDS: LIPITOR 20 MG PO (17:45)
[2023-11-04 18:34] VITALS: BP 119/69
[2023-11-04] MEDS: NOVOLOG FLEXPEN-LOW RESISTANCE 1 UNITS SC (18:36)
[2023-11-04 22:29] VITALS: BP 135/76
--- NOTE | 2023-11-04 23:06 | PTCARENOTE ---
chest clipped, NPO after midnight
[2023-11-04 23:16] LABS: Glucose - Point of Care 155 mg/dl (70-99)
[2023-11-05] VITALS (9 sets, daily range): BP systolic 112–141; BP diastolic 64–83
[2023-11-05 05:26] LABS: Blood Urea Nitrogen 34 mg/dl (9-20); Carbon Dioxide 22 mmol/L (22-30); Chloride 106 mmol/L (98-107); Estimated Creatinine Clearance 40 ml/min; Glucose 130 mg/dl (70-99); Sodium 135 mmol/L (135-145); eGFR 45.91
--- NOTE | 2023-11-05 07:39 | W.PN.HOSP.TC ---
Today's Communication/Plan
-
ICD today
Assessment / Plan
Assessment / Plan
Gen-AAOx3, NAD
HEENT-NC, AT, anicteric, clear oral mm
Neck-supple
CV-reg, loud systolic murmur, +S1/S2
Lungs-clear B/L
Abd-soft, NT, ND
Ext-no edema
Musculoskeletal-no cyanosis, clubbing
Skin-warm and dry
Neuro-grossly non-focal
Psych-calm, cooperative
NSTEMI -underwent cardiac catheterization November 02 with stenting of LAD lesion, D1 lesion, medical treatment recommended for distal RCA lesion. LVEF 42% with mild distal anterior lateral hypokinesis. Severe aortic stenosis. Continue dual
antiplatelet therapy.
Echocardiogram shows LVEF 40%, mid to distal anterior, apical, apical septal, and distal inferior akinesis/dyskinesis with aneurysmal formation of the apex.
Severe aortic stenosis - possible contributor to syncope. Eventual TAVR as an outpatient per cardiology. Aortic valve area 0.9 cm�.
Syncope -suspect due to ischemia from acute CT, nonsustained V. tach noted on monitor. Out of hospital cardiac arrest that likely self-terminated, discussed with cardiology. Patient aware that he should not drive for 6 months. ICD placement today.
Hyponatremia -resolved.
DM2 with hyperglycemia -glucose 130 this morning. He is on glipizide, Januvia, metformin at home. Currently on glipizide and Januvia, add low resistance NovoLog scale. Hemoglobin A1c was 7.3% in September. Hold metformin for 48 hours given IV
contrast exposure with catheterization yesterday.
CKD 3B - renal function appears to be at baseline.
Essential hypertension -stable.
Gout -stable.
BPH
Normocytic anemia -likely chronic. Follow-up as outpatient.
Full code
Dispo -likely discharge tomorrow if stable.
Anticipated Discharge: Within 24 hours
Subjective/Interval History
-
Date of Service: November 05, 2023
Patient seen and examined. No complaints.
Objective Data
-
Labs:
Laboratory Results
11/05/23
04:29
Sodium 135
Potassium 4.0
Chloride 106
Carbon Dioxide 22
BUN 34 H
Creatinine 1.5 H
Glucose 130 H
Calcium 9.0
Vital Signs:
Vital Signs
Temp Pulse Resp BP Pulse Ox
98.2 F 76 16 132/73 97
11/05/23 04:16 11/05/23 06:15 11/05/23 04:16 11/05/23 04:16 11/05/23 04:16
I&O
11/04/23 11/05/23 11/06/23
06:59 06:59 06:59
Intake Total 480 / 480
Balance 480 / 480
Review of Systems
-
History Source: Patient
All other systems: Reviewed and negative
[2023-11-05] MEDS: LOW STRENGTH ASPIRIN 81 MG PO (09:25)
[2023-11-05] MEDS: CARDURA 2 MG PO (09:25)
[2023-11-05] MEDS: PLAVIX 75 MG PO (09:25)
[2023-11-05] MEDS: ZYLOPRIM 300 MG PO (09:25)
[2023-11-05 09:26] LABS: Glucose - Point of Care 140 mg/dl (70-99)
[2023-11-05] MEDS: COZAAR 12.5 MG PO (09:26)
[2023-11-05] MEDS: COREG 6.25 MG PO ×2 (09:26→20:18)
[2023-11-05] MEDS: PROSCAR 5 MG PO (09:26)
[2023-11-05] MEDS: NOVOLOG FLEXPEN-LOW RESISTANCE SC ×3 (09:26→16:34)
[2023-11-05] MEDS: URECHOLINE 25 MG PO ×2 (09:30→20:18)
--- NOTE | 2023-11-05 11:49 | CM ---
CM following for DC planning needs.
Met w/ patient, dtr. at bedside. Pt. is anticipating ICD today, feels well.
DC plan is for home, no needs.
CM to cont. to follow.
[2023-11-05 12:47] LABS: Glucose - Point of Care 127 mg/dl (70-99)
--- NOTE | 2023-11-05 14:07 | W.PN.CD ---
Today's Communication / Plan
-
- ICD today
Impression / Plan
-
Syncope, with out of hospital cardaic arrest and noted to have NSTEMI and NSVT on telemetry, plan as below
Cardiogenic syncope:
- Syncope with cardiogenic arrhythmia. likely VT related given VT noted on telemetry.
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
- RCA not treated - chronic disease
- NSVT - frequent symptomatic VT noted
- Recommend ICD today - given need for beta blockers then will add atrial lead as well.
- Metoprolol - switched to Coreg 6.25 mg BID and uptitrate as tolerated.
NSTEMI
-s/p LHC and PCI on 11/03/23
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
- Residual RCA disease.
- LVEF 40%- ECHO 11/03/23: LVEF 40%. 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
- DAPT for 12 months.
- Loading with Plavix and on ASA
Aortic stenosis
- ECHO 11/03/23: LVEF 40%. Severe aortic stenosis; peak/mean gradients across the aortic valve are 60/37 mmHg, calculated GAYLA 0.9 cm2.
- TAVR work up as outpatient.
Type 2 diabetes mellitus, HgbA1c 7.3%
BPH
Macular edema with retinopathy, injections q6 weeks
____
ECHO 11/03/23:
-Left ventricular ejection fraction is approximately 40%. Mid to distal
anterior, apical, apical septal, and distal inferior akinesis/dyskinesis with
aneurysmal formation at the apex.
-Normal right ventricular size and function.
-Severe aortic stenosis; peak/mean gradients across the aortic valve are 60/37
mmHg, calculated GAYLA 0.9 cm2.
[facility] - 11/03/23: CORONARY ANGIOGRAPHY
Dominance: Right
Left Main: Normal
LAD: 30% mid LAD stenosis distal to the takeoff of D2. There is 99% distal LAD stenosis with ELVIA grade II flow distal to the lesion. The large first diagonal branch has 70-80% ostial/proximal stenosis
- PCI to distal LAD and D1.
Circumflex: 50-60% mid circumflex stenosis distal to the takeoff of the small OM1 and huge OM 2 and proximal to the takeoff of the tiny OM 3 and terminal medium sized OM 4 . The large OM 2 has 30% proximal stenosis
RCA: The RCA has a high anterior takeoff that required cannulation with an AL-1 diagnostic catheter. This vessel has mild luminal disease proximally and there is a short focal 70-80% stenosis distally proximal to the takeoff of the small PDA. The
acute marginal branch supplies the distal PDA territory. The RCA terminates with a small RPL 1 and a medium sized RPL 2
1: Severe aortic stenosis
2: Severe apical and mild distal anterolateral hypokinesis with EF 42%
3. Multivessel CAD as described
4. Successful stenting of 99% distal LAD lesion using 2.75 x 18 [place] SOBIA
5. Successful stenting of 70-80% ostial/proximal D1 lesion using 2.5 x 15 [place] SOBIA
6. Recommend dual antiplatelet therapy for 12 months
7. Treat distal RCA disease medically for now although this can be stented if symptoms persist
8. Recommend evaluation for TAVR
Physical Exam
Vital Signs/Labs
Vital Signs
Temp Pulse Resp BP Pulse Ox
97.4 F 76 20 123/64 96
11/05/23 12:19 11/05/23 12:45 11/05/23 12:19 11/05/23 12:19 11/05/23 12:19
11/04/23 03:05
11/05/23 04:29
APTT 33.8 Sec (23.4-35.0) 11/03/23 12:03
Triglycerides 45 mg/dl (10-149) 11/03/23 05:54
LDL Cholesterol, Calc 43 mg/dl 11/03/23 05:54
VLDL Cholesterol, Calc 9 mg/dl (0-30) 11/03/23 05:54
HDL Cholesterol 72 mg/dl 11/03/23 05:54
LAB Results
11/02/23 11/03/23 11/03/23
19:52 01:57 05:54
Troponin I 0.708 H* D 3.530 H* D 5.350 H* D
11/03/23 11/03/23
12:03 20:10
Troponin I 6.410 H* 4.330 H*
Physical Exam
Constitutional: No acute distress and Comfortable
EENT: Anicteric and Moist mucous membranes
Cardiovascular: Rhythm & rate is regular, Pedal edema is absent and JVD pressure is normal
Respiratory: Respiratory effort normal and Crackles Absent
GI: Soft, Flat and Non tender
Neuro/Psych: Alert, Oriented and AO x 3
Data Reviewed
-
Date of Service: November 05, 2023
Medical Decision Making: Reviewed Test Results, Independent Historian Assessment and Test Interpretation
EKG: Tracing Personally Visualized and interpreted
Echo: Report Reviewed by me
Labs: Labs Reviewed by me
Old Records: Reviewed
--- NOTE | 2023-11-05 15:36 | ITS.CL.ICD ---
Front Desk Monitor - ICD
Implantable Cardioverter Defibrillator
Procedure Report:
Dual Chamber Implantable Cardioverter Defibrillator Placement:
Mr. Ortega is a very pleasant 83 years old gentleman with recurrent syncope, with non-sustained VT on telemetry with highly suspicious of cardiac arrhythmia s/p cardiac cath with LAD intervention and RCA not intervenable with inferior wall scar is
recommended a dual chamber ICD placement. He has symptomatic bradycardia and in need of high dose beta blockers and has severe aortic stenosis pending work up.
Indications: VT with syncope - Secondary prevention of sudden cardiac for ventricular tachycardia
Date of the Procedure: 11/05/2023
Pre-Operative Diagnosis: Secondary prevention of sudden cardiac for ventricular tachycardia
Post-Operative Diagnosis: Secondary prevention of sudden cardiac for ventricular tachycardia
Procedure Performed: DUAL CHAMBER IMPLANTABLE CARDIOVERTER DEFIBRILLATOR IMPLANTATION
Surgeon:
Aspen Rodriguez MD
Anesthesia:
See anesthesia records
Detailed Description of the Procedure:
The patient was identified using hospital identification and informed consent obtained for the procedure. The risks were explained including, but not limited to: Bleeding, infection, arrhythmia, stroke, vascular/cardiac/lung puncture, surgery,
pacemaker dependency/device malfunction. All questions were answered.
The patient was brought to the electrophysiology laboratory in stable condition in fasting state. Continuous electrocardiographic and hemodynamic monitoring was initiated. The initial rhythm was normal sinus rhythm with PVCs.
The procedure site was meticulously prepared with surgical scrub and allowed to dry with no pooling. Sterile draping was applied to cover the procedure site. The image intensifier was draped with sterile bag and positioned over the patient.
The left infraclavicular region was prepped and draped in the usual sterile fashion. Local anesthesia was administered subcutaneously using 1% lidocaine / Bupivacaine. The left cephalic vein cut down was performed with an incision at the
delto-pectoral groove, and vascular sheaths were introduced for lead access. These were advanced into the right ventricle and the right atrium. The right ventricular lead was secured in position with an active fixation technique at the apical septal
location. The RA lead was attached in the right atrial appendage with active fixation. There was excellent sensing, pacing, and impedance from the leads, with no diaphragmatic stimulation at 10 V output.�Bovie cautery, antibiotics, and fluoroscopy
were used.
The sheath was withdrawn, and the thresholds remained acceptable. The leads were secured in position at the venous entry site with 0-silk and anchored to the underlying fascia. A pocket was fashioned contiguous to the incision. The electrode
terminals were connected to the pulse generator, which was placed into the pocket and attached to the underlying fascia using 0-silk suture. The wound was irrigated thoroughly with antibiotic solution.
The wound was closed in 3 layers using 2-0 Vloc sutures followed by 4-0 V-loc sutures. Steri-Strips and a bandage were applied externally.�
Procedure End:
The procedure was tolerated well. A bandage was applied to the incision area.
Estimated Blood loss:
5 cc
Specimens Removed:
No cultures and no specimens were obtained. No intraoperative pathology was identified.
Urine output:
None
Packs / Drains/ Tubes:
None
Instrument / Sponge Count Correct:
Yes
Complications of the Procedure:
None
Condition of Patient at Time of Transfer:
Hemodynamically stable with no neurological or vascular compromise.
Device information:�
Generator: [employer]; Model: [id number]; Serial # [id number]�
Atrial Lead: [email or web address]; Model: Tendril [id number] [id number]; Serial # [id number]�
Measured data in the right atrium was sensing of 3.5 mV, impedance of 530 ohms and threshold of 0.5 V at 0.4ms�
RV Lead: [employer]; Model: [id number] - 65; Serial # [id number]
Measured data in the RV lead was sensing of 11.7 mV, impedance of 600ohms and threshold of 0.5 V at 0.5ms�
PROGRAMMING PARAMETERS:�
Reji parameter settings were DDDR 60-120 bpm
����������� Mode switch: On
����������� Rate responsive A-V delay: Off
����������� Ventricular intrinsic Preference (VIP): on
����������� VIP extension:� 200 ms
����������� Search interval 30 sec
Output� parameters:
����������������������� Amplitude (V)������������� Pulse Width (ms)������� Sensitivity (mV)
����������� RA: ����� 2.5 ����������������������������� 0.5������������������������������ Auto
����������� RV:������ 2.5������������������������������ 0.5������������������������������ Auto
Tachy parameter settings:
����������� SVT discrimination: On
����������� AF/AFl: On
����������� SVT limit: 260 msec
����������� VT zone:
����������������������� Slow VT: 150-176 bpm --> Monitor
����������������������� Fast VT: 176-200--> ATP x3 then Shock x3
����������������������� VF: >200bpm--> ATP x1 then Shock x6
�����������
Summary:
Successful implantation of MRI compatible dual chamber Schultz ICD pacemaker
Results/Recommendations:
-Please follow up CXR�
1. Please provide patient with adequate pain control�
Instructions to be given to patient:�
- Please follow up with [facility] at [address] [place] [address] ([phone]) to get your wound checked within 7 days of your discharge.
- Do not wet incision site until after it is evaluated at cardiology clinic. No showers until then. Sponge baths are OK.�
- Allow 'steri strips' to fall off on their own�
- Do not lift left elbow above shoulder, particularly with sudden jerking movements, for 1 month�
- Do not lift anything weighing more than 5 pounds with the left arm for 1 month�
- If you notice any fevers, shortness of breath, lightheadedness, chest pain, or worsening swelling in the wound site, please contact the arrhythmia clinic, contact your solar energy engineer, or present to the hospital for evaluation.�
Aspen Rodriguez MD
Electrophysiology
[2023-11-05 16:14] LABS: Glucose - Point of Care 122 mg/dl (70-99)
[2023-11-05] MEDS: GLUCOTROL 10 MG PO (16:33)
[2023-11-05] MEDS: JANUVIA 50 MG PO (16:33)
[2023-11-05] MEDS: GLUCOTROL PO (16:36)
--- NOTE | 2023-11-05 17:38 | PTCARENOTE ---
Received pt post AICD insertion. VSS. Left ACW w/ pressure dressing intact. Pt denies any disscomfort. EKG and CXR obtained. Will monitor.
[2023-11-05] MEDS: LIPITOR 20 MG PO (18:12)
[2023-11-05] MEDS: ANCEF 5 IV (20:18)
[2023-11-05 22:21] LABS: Glucose - Point of Care 170 mg/dl (70-99)
--- NOTE | 2023-11-06 00:56 | PTCARENOTE ---
Pt. AAOX3, VSS; NSR with very occ. A-pacing on the monitor. Left chest AICD site pressure dressing intact without drainage or S&S hematoma, good left radial pulse & + sensation to left hand assessed. Pt. denies any pain. OOB with assist x 1 to
use BR, gait steady. Pt. currently resting quietly.
[2023-11-06 02:32] VITALS: BP 132/77
[2023-11-06 03:10] LABS: Hematocrit 41.5 % (39.0-52.0); Hemoglobin 13.7 g/dL (13.0-18.0); Mean Corpuscular Hgb 30.9 pg (27.0-31.0); Mean Corpuscular Volume 93.5 fL (80.0-94.0); Platelet Count 168 10^3/uL (130-400); Red Blood Cell Count 4.44 10^6/uL (4.70-6.10); Red Cell Dist. Width 13.4 % (11.5-14.5); White Blood Cell Count 8.3 10^3/uL (4.8-10.8)
[2023-11-06 03:33] LABS: Blood Urea Nitrogen 41 mg/dl (9-20); Calcium 9.2 mg/dl (8.4-10.2); Carbon Dioxide 21 mmol/L (22-30); Chloride 107 mmol/L (98-107); Estimated Creatinine Clearance 36 ml/min; Glucose 128 mg/dl (70-99); Magnesium 1.8 mg/dl (1.6-2.3); Potassium 4.3 mmol/L (3.5-5.1); Sodium 137 mmol/L (135-145); eGFR 39.51
[2023-11-06] MEDS: TYLENOL 650 MG PO (04:42)
[2023-11-06] MEDS: ANCEF 5 IV (04:51)
[2023-11-06 07:02] LABS: Glucose - Point of Care 153 mg/dl (70-99)
[2023-11-06 07:03] VITALS: BP 123/74
[2023-11-06] MEDS: NOVOLOG FLEXPEN-LOW RESISTANCE 1 UNITS SC (08:35)
[2023-11-06] MEDS: GLUCOTROL 10 MG PO (08:37)
[2023-11-06] MEDS: JANUVIA 50 MG PO (08:37)
[2023-11-06] MEDS: COREG 6.25 MG PO (08:37)
[2023-11-06] MEDS: LOW STRENGTH ASPIRIN 81 MG PO (08:38)
[2023-11-06] MEDS: ZYLOPRIM 300 MG PO (08:38)
[2023-11-06] MEDS: PLAVIX 75 MG PO (08:38)
[2023-11-06] MEDS: PROSCAR 5 MG PO (08:38)
[2023-11-06] MEDS: FLUSH (NSS) 2 FLUSH IV (08:39)
[2023-11-06] MEDS: CARDURA 2 MG PO (08:39)
--- NOTE | 2023-11-06 10:12 | W.PN.HOSP.TC ---
Today's Communication/Plan
-
Discharge
Assessment / Plan
Assessment / Plan
Gen-AAOx3, NAD
HEENT-NC, AT, anicteric, clear oral mm
Neck-supple
CV-reg, loud systolic murmur, +S1/S2
Lungs-clear B/L
Abd-soft, NT, ND
Ext-no edema
Musculoskeletal-no cyanosis, clubbing
Skin-warm and dry
Neuro-grossly non-focal
Psych-calm, cooperative
NSTEMI -underwent cardiac catheterization November 02 with stenting of LAD lesion, D1 lesion, medical treatment recommended for distal RCA lesion. LVEF 42% with mild distal anterior lateral hypokinesis. Severe aortic stenosis. Continue dual
antiplatelet therapy.
Echocardiogram shows LVEF 40%, mid to distal anterior, apical, apical septal, and distal inferior akinesis/dyskinesis with aneurysmal formation of the apex.
Severe aortic stenosis - possible contributor to syncope. Eventual TAVR as an outpatient per cardiology. Aortic valve area 0.9 cm�.
Syncope -suspect due to ischemia from acute [place], nonsustained V. tach noted on monitor. Out of hospital cardiac arrest that likely self-terminated, discussed with cardiology. Patient aware that he should not drive for 6 months. ICD placed
yesterday. Postprocedure chest x-ray negative for pneumothorax.
Hyponatremia -resolved.
DM2 with hyperglycemia -glucose 128 this morning. He is on glipizide, Januvia, metformin at home. Currently on glipizide and Januvia, add low resistance NovoLog scale. Hemoglobin A1c was 7.3% in September. Resume metformin on discharge.
CKD 3B - renal function appears to be at baseline.
Essential hypertension -stable.
Gout -stable.
BPH
Normocytic anemia -likely chronic. Follow-up as outpatient.
Full code
Dispo -medically stable for discharge home today. Follow-up with PCP and cardiology. Discussed with Dr. Hinojosa.
32 minutes spent in discharge process.
Anticipated Discharge: Today
Subjective/Interval History
-
Date of Service: November 06, 2023
Patient seen and examined. No complaints.
Objective Data
-
Labs:
Laboratory Results
11/06/23
02:48
WBC 8.3
Hgb 13.7
Hct 41.5
Plt Count 168
Sodium 137
Potassium 4.3
Chloride 107
Carbon Dioxide 21 L
BUN 41 H
Creatinine 1.7 H
Glucose 128 H
Calcium 9.2
Vital Signs:
Vital Signs
Temp Pulse Resp BP Pulse Ox
98.2 F 96 16 123/74 98
11/06/23 07:04 11/06/23 08:00 11/06/23 07:04 11/06/23 07:03 11/06/23 07:04
I&O
11/05/23 11/06/23 11/07/23
06:59 06:59 06:59
Intake Total 240 / 240
Balance 240 / 240
Review of Systems
-
History Source: Patient
All other systems: Reviewed and negative
--- NOTE | 2023-11-06 10:19 | W.DS.TRANS ---
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
-
Discharge Instructions:
Discharge Diagnosis/Procedures NSTEMI, s/p angioplasty and stent x1 to Left
Anterior Descending artery and x1 to Diagonal
artery 11/02, ICD implant 11/04
Diet Low Cholesterol,Low Fat,2 Gram Sodium
Activity As tolerated
Driving Restrictions no driving for 6 months
Bathing Restrictions OK to Shower
Other Services Cardiac Rehab
Instructions:
Stand-Alone Forms: DC Instructions- Cath/EP Lab
DC Inst - Implanted Device
Changes to Home Medications: Yes
Discharge Medications:
DC Medications w/original date entered in [employer]
allopurinol 300 mg tablet 300 mg PO DAILY Gout 02/08/22
glipizide 10 mg tablet 10 mg PO BID Diabetes 02/08/22
metformin 500 mg tablet 1,000 mg PO BID Diabetes 02/08/22
sitagliptin phosphate 100 mg tablet (Januvia) 50 mg PO DAILY Diabetes 02/08/22
bethanechol chloride 25 mg tablet 25 mg PO BID@1000,1900 prostate 11/02/23
doxazosin 1 mg tablet 2 mg PO DAILY prostate 11/02/23
finasteride 5 mg tablet 5 mg PO DAILY prostate 11/02/23
losartan 25 mg tablet 12.5 mg PO DAILY Blood Pressure 11/02/23
aspirin 81 mg chewable tablet (Children's Aspirin) 81 mg PO DAILY #60 tabs 11/06/23
atorvastatin 20 mg tablet 20 mg PO QPM #30 tabs 11/06/23
carvedilol 6.25 mg tablet 6.25 mg PO BID #60 tabs 11/06/23
clopidogrel 75 mg tablet 75 mg PO DAILY #30 tabs 11/06/23
Home Medication Changes
Stop amlodipine
Pending Results: No
--- NOTE | 2023-11-06 11:37 | CM ---
CM following for DC planning needs.
Met w/ patient at bedside. Pt. feels well, is prepared and anticipating DC today.
Pt. declines any needs at DC; states that he has ample support.
Plan is for home, no needs.
[2023-11-06 11:38] VITALS: BP 126/79
[2023-11-06] MEDS: URECHOLINE 25 MG PO (11:46)
[2023-11-06] MEDS: COZAAR 12.5 MG PO (11:46)
--- NOTE | 2023-11-06 13:58 | PTCARENOTE ---
Patient seen by attending and is ok for discharge. Reviewed post ICD and cath instructions with the patient and his family and they state their understanding. Patient discharged home with his family.
== END 2023-11-06 12:15 | disposition home or self-care (01) | DRG 275 ==
LOC: IVU 13:35
PROVIDERS: Emergency Medicine; Internal Medicine Cardiovascular Disease; Nurse Practitioner; Nurse Practitioner Adult Health; Nurse Practitioner Family; Nurse Practitioner Gerontology; ADMITTING PHYSICIAN Hospitalist; CONSULT PHYSICIAN Internal Medicine; EMERGENCY PHYSICIAN Emergency Medicine; FAMILY PHYSICIAN Internal Medicine
PROC: 4A023N7 Measurement of Cardiac Sampling and Pressure, Left Heart, Percutaneous Approach (ICD-10-PCS; 2023-11-03)
PROC: B2151ZZ Fluoroscopy of Left Heart using Low Osmolar Contrast (ICD-10-PCS; 2023-11-03)
PROC: B2111ZZ Fluoroscopy of Multiple Coronary Arteries using Low Osmolar Contrast (ICD-10-PCS; 2023-11-03)
PROC: 027135Z Dilation of Coronary Artery, Two Arteries with Two Drug-eluting Intraluminal Devices, Percutaneous Approach (ICD-10-PCS; 2023-11-03)
PROC: 0JH608Z Insertion of Defibrillator Generator into Chest Subcutaneous Tissue and Fascia, Open Approach (ICD-10-PCS; 2023-11-05)
PROC: 02H63KZ Insertion of Defibrillator Lead into Right Atrium, Percutaneous Approach (ICD-10-PCS; 2023-11-05)
PROC: 02HK3KZ Insertion of Defibrillator Lead into Right Ventricle, Percutaneous Approach (ICD-10-PCS; 2023-11-05)
DX: I21.4 Non-ST elevation (NSTEMI) myocardial infarction (principal); I46.2 Cardiac arrest due to underlying cardiac condition; E87.1 Hypo-osmolality and hyponatremia; I47.20 Ventricular tachycardia, unspecified; E11.65 Type 2 diabetes mellitus with hyperglycemia; I25.10 Atherosclerotic heart disease of native coronary artery without angina pectoris; I35.0 Nonrheumatic aortic (valve) stenosis; E11.22 Type 2 diabetes mellitus with diabetic chronic kidney disease; E11.311 Type 2 diabetes mellitus with unspecified diabetic retinopathy with macular edema; I12.9 Hypertensive chronic kidney disease with stage 1 through stage 4 chronic kidney disease, or unspecified chronic kidney disease; N18.32 Chronic kidney disease, stage 3b; M10.9 Gout, unspecified; N40.0 Benign prostatic hyperplasia without lower urinary tract symptoms; D63.1 Anemia in chronic kidney disease; Z79.84 Long term (current) use of oral hypoglycemic drugs; Z79.899 Other long term (current) drug therapy; Z82.49 Family history of ischemic heart disease and other diseases of the circulatory system
CPT/HCPCS: 33249; 71045; 71046; 71275; 80048; 80053; 80061; 82962; 83735; 84484; 85025; 85027; 85347; 85730; 93005; 93306; 93458; 99291; C1721; C1725; C1769; C1874; C1892; C1894; C1895; C1898; C9600; C9601; Q9967

== ENCOUNTER 2023-11-12 13:15 | Emergency (ER) | payer MEDICARE, OTHER, SELFPAY ==
[2023-11-12 13:19] VITALS: BP 143/78
[2023-11-12 13:39] LABS: % Basophils 0.4 % (0-2); % Eosinophils 4.1 % (0-6); % Immature Granulocytes 0.6 % (0-0.5); % Lymphocytes 19.2 % (20.5-51.1); % Neutrophils 67.7 % (42.2-75.2); Absolute Eosinophils 0.3 10^3/uL (0-0.7); Absolute Lymphocytes 1.4 10^3/uL (1.2-3.4); Absolute Monocytes 0.6 10^3/uL (0.1-0.6); Absolute Neutrophils 4.9 10^3/uL (1.4-6.5); Hematocrit 32.9 % (39.0-52.0); Hemoglobin 11.2 g/dL (13.0-18.0); Mean Corpuscular Hgb 30.9 pg (27.0-31.0); Mean Corpuscular Volume 90.9 fL (80.0-94.0); Mean Platelet Volume 11.5 fL (7.4-10.4); Nucleated Red Blood Cells % 0 % (-); Platelet Count 183 10^3/uL (130-400); Red Blood Cell Count 3.62 10^6/uL (4.70-6.10); Red Cell Dist. Width 13.5 % (11.5-14.5); White Blood Cell Count 7.3 10^3/uL (4.8-10.8)
[2023-11-12 13:53] LABS: ALT (SGPT) 16 U/L (0-50); AST (SGOT) 24 U/L (17-59); Albumin 4.3 g/dl (3.5-5.0); Alkaline Phosphatase 87 U/L (38-126); Blood Urea Nitrogen 35 mg/dl (9-20); Calcium 10.1 mg/dl (8.4-10.2); Carbon Dioxide 24 mmol/L (22-30); Chloride 104 mmol/L (98-107); Glucose 132 mg/dl (70-99); Potassium 4.8 mmol/L (3.5-5.1); Sodium 136 mmol/L (135-145); Total Bilirubin 0.8 mg/dl (0.2-1.3); Total Protein 6.8 g/dl (6.3-8.2); eGFR 49.87
[2023-11-12 16:15] VITALS: BMI 28.5
[2023-11-12 16:16] VITALS: BP 134/77
--- NOTE | 2023-11-12 16:25 | ED.GENMED ---
History of Present Illness
General
Chief Complaint: Weakness
Time Seen by Provider: 11/12/23 16:03
Travel History
Have you had any contact with someone who has COVID-19?: No
Do you have any symptoms of coronavirus? Fever > 100 degrees, chills, cough, shortness of breath, sore throat, loss of taste or smell, muscle aches, or headache?: No
History of Present Illness
History of Present Illness:
83-year-old male with history of aortic stenosis and recent AICD placement presents to the emergency department for evaluation of fatigue. He describes 'brain fog' that occurs randomly over the past 2 days. Family denies any noticeable confusion
or speech problems. 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 He denies any chest pain or shortness of breath. Has been compliant with his medications. No fevers, chills, or night sweats.
Past History
Past History
ED Past Medical History: HTN and NIDDM
ED Past Surgical History: Tonsilectomy
Social History
Tobacco: Non-smoker
Alcohol: Occasional
Personal:
Living: with family
Family History
Family History: Unable to obtain
Review of Systems
Review of Systems
Allergies reviewed?: Yes
All Other Systems: ROS reviewed and negative except as documented in HPI and ROS
Phy Exam
Physical Exam
Physical Exam:
GEN: Well appearing, NAD, WDWN
HEENT: Oral mucosa moist, no scleral icterus, no nasal congestion
Cardiac: Regular rate and rhythm, holosystolic murmur consistent with known
Lung: No respiratory distress, no tachypnea
MSK: No gross deformity or injuries
Skin: Good color, no pallor or jaundice, no rashes
Neuro: AO x3; CN II-XII grossly intact. BUE strength 5/5 in all miranda, sensation intact and symmetric. BLE strength 5/5 in all miranda, sensation intact and symmetric
Psych: Calm, cooperative
Course
Orders/Labs/Results
Orders:
Orders
11/12/23 13:31
Complete Blood Count/With Diff Urgent
Comprehensive Metabolic Panel Urgent
Abnormal Lab Results
11/12/23
13:31
RBC 3.62 L 10^6/uL
(4.70-6.10)
Hgb 11.2 L g/dL
(13.0-18.0)
Hct 32.9 L %
(39.0-52.0)
MPV 11.5 H fL
(7.4-10.4)
Immature Gran % 0.6 H %
(0-0.5)
Lymphocytes % 19.2 L %
(20.5-51.1)
BUN 35 H mg/dl
(9-20)
Creatinine 1.4 H mg/dL
(0.7-1.3)
Glucose 132 H mg/dl
(70-99)
11/12/23 13:31
11/12/23 13:31
Vital Signs
Initial and Last Documented VS:
Initial Vital Signs
Temp Pulse Resp BP Pulse Ox
98.6 F 70 18 143/78 98
11/12/23 13:19 11/12/23 13:19 11/12/23 13:19 11/12/23 13:19 11/12/23 13:19
Last Documented Vital Signs
Temp Pulse Resp BP Pulse Ox
98.6 F 68 19 134/77 98
11/12/23 13:19 11/12/23 16:16 11/12/23 16:16 11/12/23 16:16 11/12/23 16:16
MDM/Problems Addressed
MDM/Problems Addressed:
Patient's workup is unremarkable. He is not on focal neurologic exam. He denies any acute complaints while in the emergency department. Unclear etiology to his symptoms, could be posthospitalization delirium/deconditioning contributing to his
symptoms. His device was interrogated is normal this morning. Recommend increased home fluids, outpatient primary care and cardiology follow-up as needed
*Critical Care Note
Total Time (30-74mins, 75-104mins- exclusive of procedures): Not Applicable
ED Attending Note
-
Portions of this chart may have been created with voice recognition software.� Occasional wrong word or��sound alike� substitutions may have occurred due to the inherent limitations of voice recognition software.
Discharge Plan
Departure
Patient Disposition: Home (Routine Discharge)
Date of Disposition: 11/12/23
Time of Disposition: 16:26
Patient with high blood pressure during this ER visit?: No
Discharge Problem:
Fatigue
Instructions: Generalized Weakness (DC)
Prescriptions:
No Action
metformin 500 mg Tablet
1,000 mg PO BID
Hold Instructions: Resume on 03/05/22. DO NOT RESUME TAKING UNTIL DIRECTED TO DO SO BY YOUR PHYSICIAN.
glipizide 10 mg Tablet
10 mg PO BID
allopurinol 300 mg Tablet
300 mg PO DAILY
Januvia 100 mg Tablet
50 mg PO DAILY
bethanechol chloride 25 mg tablet
25 mg PO BID@1000,1900
Rx Instructions:
TAKE 1 TABLET 1 HOUR BEFORE OR 2 HOURS AFTER MEALS ORALLY TWICE A DAY
losartan 25 mg tablet
12.5 mg PO DAILY
doxazosin 1 mg tablet
2 mg PO DAILY
finasteride 5 mg tablet
5 mg PO DAILY
carvedilol 6.25 mg Tablet
6.25 mg PO BID Qty: 60 0RF
atorvastatin 20 mg Tablet
20 mg PO QPM Qty: 30 0RF
clopidogrel 75 mg Tablet
75 mg PO DAILY Qty: 30 0RF
aspirin [Children's Aspirin] 81 mg Tablet,Chewable
81 mg PO DAILY Qty: 60 0RF
Interventions
Interventions:
*Risk Screen - Suicide Last Done: 11/12/23 13:19
*General Assessment Last Done: 11/12/23 13:19
*Neglect/Abuse Screening Last Done: 11/12/23 13:19
ED- Fall Risk Assessment Last Done: 11/12/23 16:52
*ED COVID-19 Vaccine History Last Done: 11/12/23 13:19
*Nursing Disposition Last Done: 11/12/23 16:52
ED- Cardiac Assessment Last Done: 11/12/23 16:17
ED- Neurological Assessment Last Done: 11/12/23 16:17
ED- Pulmonary Assessment Last Done: 11/12/23 16:17
Discharge Date and Time
Discharge Date/Time: 11/12/23 16:53
Print Language: IRAQI
== END 2023-11-12 16:53 | disposition home or self-care (01) ==
LOC: EMR 13:15
PROVIDERS: Emergency Medicine; EMERGENCY PHYSICIAN Emergency Medicine; FAMILY PHYSICIAN Internal Medicine
DX: R53.83 Other fatigue (principal); I10 Essential (primary) hypertension; E11.9 Type 2 diabetes mellitus without complications; I35.0 Nonrheumatic aortic (valve) stenosis; Z95.810 Presence of automatic (implantable) cardiac defibrillator
CPT/HCPCS: 99283; 80053; 85025

== ENCOUNTER → 2023-12-09 09:17 | Outpatient (REF) | payer MEDICARE, OTHER, SELFPAY | LOC: RAD 09:17 | PROVIDERS: ATTENDING PHYSICIAN Nurse Practitioner Acute Care; FAMILY PHYSICIAN Internal Medicine | DX: I35.0 Nonrheumatic aortic (valve) stenosis (principal) | CPT/HCPCS: 75572; Q9967 ==

== ENCOUNTER → 2023-12-17 06:03 | Outpatient (REF) | payer MEDICARE, OTHER, SELFPAY ==
[2023-12-17 10:23] LABS: Blood Urea Nitrogen 30 mg/dl (9-20); Calcium 9.8 mg/dl (8.4-10.2); Carbon Dioxide 26 mmol/L (22-30); Chloride 103 mmol/L (98-107); Glucose 127 mg/dl (70-99); Potassium 4.8 mmol/L (3.5-5.1); Sodium 137 mmol/L (135-145); eGFR 49.87
== END ==
LOC: HWLAB 06:03
PROVIDERS: ATTENDING PHYSICIAN Nurse Practitioner Acute Care; FAMILY PHYSICIAN Internal Medicine
DX: I35.0 Nonrheumatic aortic (valve) stenosis (principal)
CPT/HCPCS: 36415; 80048

== ENCOUNTER → 2023-12-28 09:07 | Outpatient (REF) | payer MEDICARE, OTHER, SELFPAY | LOC: RAD 09:07 | PROVIDERS: ATTENDING PHYSICIAN Nurse Practitioner Acute Care | DX: I35.0 Nonrheumatic aortic (valve) stenosis (principal) | CPT/HCPCS: 74174; Q9967 ==

== ENCOUNTER 2024-01-28 07:37 | Inpatient (IN) | payer MEDICARE, OTHER, SELFPAY ==
[2024-01-19 08:52] VITALS: BMI 30.6
[2024-01-19 10:10] LABS: % Basophils 0.4 % (0-2); % Immature Granulocytes 0.4 % (0-0.5); % Lymphocytes 17.5 % (20.5-51.1); % Monocytes 11.7 % (1.7-9.3); Absolute Eosinophils 0.2 10^3/uL (0-0.7); Absolute Lymphocytes 0.9 10^3/uL (1.2-3.4); Absolute Monocytes 0.6 10^3/uL (0.1-0.6); Absolute Neutrophils 3.6 10^3/uL (1.4-6.5); Hematocrit 34.7 % (39.0-52.0); Hemoglobin 11.7 g/dL (13.0-18.0); Mean Corp Hgb Conc. 33.7 g/dL (33.0-37.0); Mean Corpuscular Hgb 32.1 pg (27.0-31.0); Mean Corpuscular Volume 95.1 fL (80.0-94.0); Mean Platelet Volume 11.9 fL (7.4-10.4); Nucleated Red Blood Cells % 0 % (-); Platelet Count 147 10^3/uL (130-400); Red Blood Cell Count 3.65 10^6/uL (4.70-6.10); Red Cell Dist. Width 14.4 % (11.5-14.5); White Blood Cell Count 5.3 10^3/uL (4.8-10.8)
[2024-01-19 10:25] LABS: Urine Albumin 1+ (Neg - Trace); Urine Bilirubin Negative (Negative); Urine Character Slightly Cloudy (Clear); Urine Color Yellow; Urine Glucose Negative (Negative); Urine Ketone Negative (Negative); Urine Leukocyte 2+ (Negative); Urine Nitrite Positive (Negative); Urine Occult Blood Trace (Negative); Urine Specific Gravity 1.015 (<1.030); Urine Urobilinogen Negative (Neg - 1+)
[2024-01-19 10:26] LABS: APTT 29.9 Sec (23.4-35.0); INR 1.25; PT 15.5 Sec (11.4-14.6)
[2024-01-19 10:32] LABS: NT-proBNP 12200 pg/ml
[2024-01-19 10:41] LABS: ALT (SGPT) 14 U/L (0-50); AST (SGOT) 20 U/L (17-59); Albumin 4.2 g/dl (3.5-5.0); Alkaline Phosphatase 94 U/L (38-126); Blood Urea Nitrogen 28 mg/dl (9-20); Calcium 9.2 mg/dl (8.4-10.2); Carbon Dioxide 24 mmol/L (22-30); Chloride 105 mmol/L (98-107); Direct Bilirubin 0.3 mg/dl (0.0-0.4); Estimated Creatinine Clearance 38 ml/min; Glucose 121 mg/dl (70-99); Potassium 4.6 mmol/L (3.5-5.1); Sodium 138 mmol/L (135-145); Total Bilirubin 0.7 mg/dl (0.2-1.3); Total Protein 6.4 g/dl (6.3-8.2); eGFR 45.62
[2024-01-19 11:12] LABS: Urine Bacteria Moderate (Negative); Urine Red Blood Cell 0-2 /HPF (0-2); Urine Squamous Cell 0-2 /LPF (Few); Urine White Cell 50-60 /HPF (0-5)
[2024-01-19 11:40] LABS: Glycohemoglobin (HgbA1c) 6.8 % (4.0-5.6)
--- NOTE | 2024-01-19 12:03 | HPS.HSE ---
Family Physician
-
Family Physician: Jordon Burt
Cardiology: Bacilio Suarez
Chief Complaint
-
Pre-operative History and Physical for TAVR
History of Present Illness
Eleazar Ortega is an 83-year-old male with known progressive aortic valve stenosis. His most recent echocardiogram demonstrated a peak/mean gradient of 60/37 mmHg, respectively. GAYLA was calculated to be 0.9. His EF is also reduced to approximately 40%
with apical, septal, and anterior wall hypokinesis. His left heart catheterization revealed significant coronary disease along with apical hypokinesis/akinesis underwent successful stenting to the LAD and first diagonal. He tells me that he had
significant chest pressure and shortness of breath prior to the stenting. Following the stenting he felt significantly better but does have some residual fatigue by the end of the day. From a symptomatology standpoint, he describes mainly fatigue,
no significant shortness of breath and the chest pressure is gone. In comparison to 1 year ago, he feels about the same but little more tired. Functionally, he lives independently and is cognitively intact.
Risks of TAVR reviewed with the patient and his daughter including PPM, bleeding and stroke. Allowed for and answered questions. Patient is to arrive to the [facility] on 01/28/2024 at 0730. He is aware he will receive a call the day prior to
confirm arrival time and answer questions. He will remain on all his medications until the day prior and will only take his Plavix and Aspirin prior to his arrival on 01/28/2024.
Medical History
Past Medical History
Past Medical History: Reports Arrhythmia (V-Tach), CAD (NSTEMI, PCI), HTN, Hypercholesterolemia, NIDDM, Valvular Disease (, trace MR, Mild TR) and Other (CKD Stage 3B, benign lipomatous neoplasm, enlarged prostate)
Past Surgical History: Reports Cardiac (PCI LAD, ostial/prox D1, AICD 11/2023), Tonsilectomy, Urological (TURP, pristate surgery) and Other (Lipoma excision)
Social History
Tobacco: Non-smoker
Alcohol: None
Drug: None
Personal:
Living: Alone
Employment: Retired
Family History
Family History: CAD (Father) and Hypertension (Father)
Allergies / Home Medications
Allergies reflects when Allergies were last updated in [employer].
Home Medications with original date entered in [employer]
Allergy/Medication List:
Allergies: NKDA
Medications:
Allopurinol 300 MG Tablet 1 tablet Orally Once a Day as Needed
Aspirin 81 MG Tablet Chewable 1 tablet Orally Once a day
Atorvastatin Calcium 20 MG Tablet 1 tablet Orally Once a day
Bethanechol Chloride 25 MG Tablet 1 tablet 1 hour before or 2 hours after meals Orally Twice a Day
Carvedilol 6.25 MG Tablet 1 tablet with food Orally Twice a day
Clopidogrel Bisulfate 75 MG Tablet 1 tablet Orally Once a day
Doxazosin Mesylate 2 MG Tablet 1 tablet Orally Once a day
Finasteride 5 MG Tablet 1 tablet Orally Once a Day
glipiZIDE ER 10 MG Tablet Extended Release 24 Hour TAKE 1 TABLET BY MOUTH TWICE A DAY BEFORE MEALS
Januvia(SITagliptin Phosphate) 100 MG Tablet 1 tablet Once a Day
Losartan Potassium 25 MG Tablet 1/2 tablet Orally Once a day
metFORMIN HCl ER 500 MG Tablet Extended Release 24 Hour 1 tablet Orally Three Times a Day
Review of Systems
-
History Source: Patient
Constitutional: Reports Fatigue; Denies Weight Gain or Sleep Disturbance
EENT: Reports No Symptoms
Respiratory: Reports No Symptoms; Denies Cough
Cardiac: Reports No Symptoms; Denies Palpitations or Syncope
Abdomen/GI: Reports No Symptoms; Denies Abdominal Pain, Nausea, Vomiting or Diarrhea
: Reports No Symptoms; Denies Dysuria, Frequency, Difficulty Voiding or Urgency
Musculoskeletal: Reports No Symptoms
Skin: Reports No Symptoms
Neurological: Reports No Symptoms
Endocrine: Reports No Symptoms
Hematologic/Lymphatic: Reports No Symptoms
Psych: Reports No Symptoms
Physical Exam
Physical Exam
General: Well Developed, Well Nourished, No Apparent Distress and Comfortable
HEENT: NormoCephalic, Moist mucous membranes, Nose Appears Normal and Ears Appear Normal
Respiratory: Clear and Non Labored Respirations; No Wheezes, Rales, Rhonchi or Crackles
Cardiac: S1/S2, Regular Rhythm, Murmur (Grade III/ systolic murmur) and Peripheral Edema (bilateral LE right >left)
Breast: Deferred by me
GI: Soft, Non Tender, Non Distended and Normal Bowel Sounds
Rectal: Deferred by Provider
Genito-urinary: Deferred by me
Musculoskeletal: No Clubbing, No Cyanosis, Edema, Left Lower Extremity and Edema, Right Lower Extremity
Skin: Warm and Dry
Neuro: Awake, AO x 3, No Motor Deficits and Nonfocal/grossly intact
Hematologic/Lymphatic: No Lymphadenopathy
Psych: Calm and Intact Judgment/Insight
Laboratory Results
-
01/19/24 09:03
01/19/24 09:03
Laboratory Results
PT 15.5 Sec (11.4-14.6) H 01/19/24 09:03
INR 1.25 01/19/24 09:03
APTT 29.9 Sec (23.4-35.0) 01/19/24 09:03
Total Bilirubin 0.7 mg/dl (0.2-1.3) 01/19/24 09:03
AST 20 U/L (17-59) 01/19/24 09:03
ALT 14 U/L (0-50) 01/19/24 09:03
Alkaline Phosphatase 94 U/L (38-126) 01/19/24 09:03
Data Reviewed
-
Diagnostic Radiology: Report Reviewed by me (Chest X-ray- No active pulmonary process)
CT Scan: Report Reviewed by me
Medical Tests (Nuc Med, Echo, EKG etc): Report Reviewed by me (ECHO, EKG)
Lab Data: Labs Reviewed by me
Old Records: Reviewed (Cardiology and CT consult notes)
Impression/Plan
-
IMPRESSION:
Severe, symptomatic aortic stenosis
CAD with recent PCI
PLAN:
Aortic Stenosis
- Plan TF TAVR
-POD #1/#30 echocardiogram
-Continue ASA/Plavix
-Cardiac rehab consult
CAD
-recent PCI
-Continue ASA/Plavix
-BB/Statin
-Heart Healthy diet
--- NOTE | 2024-01-19 14:11 | CM ---
spoke to pt and daughter in PAT's, we discussed preop TAVR teaching including lifting and driving restrictions. he is prev indep, he lives alone in a 2 story home with 2 steps to enter. his daughters will be staying with him after dc. he has the
TAVR educ book, soap and instructions. he is agreeable to a f/u visit from the CT Transitional care nurse after dc. cm role explained and all questions answered. plan is for TAVR 01/27.
[2024-01-28] VITALS (17 sets, daily range): BP systolic 114–148; BP diastolic 59–86; BMI 29.8
[2024-01-28 07:46] LABS: Glucose - Point of Care 134 mg/dl (70-99)
--- NOTE | 2024-01-28 08:35 | CM ---
Reviewed chart. Mr. Ortega is in the operating room today. Prior to admission he resides alone in a two story home with two steps to enter. Prior to admission he was independent with ambulation and adls. His daughters will stay with him when he
goes home. Medical work-up in progress. The discharge plan is to return home with his daughters and a home visit by the Cardiothoracic Transitional Care Nurse when medically stable.
--- NOTE | 2024-01-28 09:43 | W.CVOR.SURPR ---
CVOR Surgeon Immed Pre Op
-
I have examined this patient prior to performance of the scheduled procedure.
The patient's condition is unchanged from the time of the dictated/written History and
Physical and the patient is able to undergo the scheduled procedure.
[2024-01-28] MEDS: ANCEF 10 IV ×2 (10:30)
[2024-01-28 11:20] LABS: ACT-LR - POC 337 Seconds (116-155)
[2024-01-28 11:42] LABS: ACT-LR - POC 227 Seconds (116-155)
--- NOTE | 2024-01-28 11:59 | W.IMMPOSTOP ---
Surgical Immed Post Op Note
-
[id number]
STRUCTURAL HEART PROCEDURE NOTE: TAVR
Preoperative Dx:
Severe aortic stenosis (P/M: 60/42; GAYLA 0.9; Pv 3.87)
Reduced LVEF (~40%)
CAD w/ Hx of NSTEMI
CKD - 3b
V-Tach w/ syncope s/p Dual-AICD (11/05/2023)
BPH s/p TURP
Benign libomatous neoplasm s/p lipoma excision
DM II
HTN
Postoperative Dx:
Same
Procedures:
1) L CFV access w/ micropuncture technique, fluoroscopic guidance, 6Fr sheath placement
2) L DESIGNATED BROKER access w/ micropuncture technique, tactile/fluoroscopic guidance, 6Fr sheath placement, limited angiography
3) Placement of temporary RV pacing wire, threshold testing
4) Placement of pigtail catheter in RCC w/ limited aortography & confirmation of co-planar view
5) R DESIGNATED BROKER access w/ micropuncture technique, tactile/fluoroscopic guidance, 6Fr sheath placement, limited angiography
6) Perclose placement x 2 into R DESIGNATED BROKER; 8Fr sheath placement
7) Serial dilation of R ileofemoral system w/ placement of Arceo E-sheath (full systemic heparinization)
8) Wire purchase across stenotic AV (AL-1, soft-tip straight, table J-wire, JR-4, AL-2, glide, AL-1, soft-tip straight, extra-stiff)
9) R TF TAVR w/ placement of 26mm SOLOMON 3 valve
10) Completion aortography
11) Completion TTE (trace AI w/ wire across valve, mean gradient 3mmHg/4mmHg)
12) Removal of valve delivery system & Arceo E-sheath w/ R DESIGNATED BROKER mgmt w/ perclose sutures x 2; manual pressure
13) Completion right ileofemoral angiography
14) Removal of L DESIGNATED BROKER sheath w/ L DESIGNATED BROKER mgmt w/ 6Fr angioseal; manual pressure
15) Removal of temporary RV pacing wire & L CFV 6Fr sheath; manual pressure
Utility Porter:
Dr. Casey Kelley
Cardiac Surgeon:
Dr. Travis Paniagua
Anesthesia:
MAC; local to B/L groins
Implants:
Arceo [employer], SOLOMON 3 26mm valve;[id number]
Perclose x 2
6Fr angioseal x 1
Cath Data:
Start: 1051, Deploy: 1145, End: 1156
FT: 27.6min, mGy: 747.03, DAP: 114.22, Contrast: 54 Visi
Post-TTE: trace AI (w/ wire across), 4mmHg
Complications:
None
Condition:
Stable/guarded
--- NOTE | 2024-01-28 12:03 | W.PN.UPDATE ---
Update Note
Progress Note Update
Reviewed Mr. Ortega with the heart team in the preTAVR SDM meeting and confirmed a 26 mm S3 via right transfemoral access. Patient will resume aspirin + plavix post TAVR. #26mm S3 (serial# [id number]) successfully deployed via right transfemoral access.
Post implant MG 4 mmHg.
[2024-01-28 12:55] LABS: Glucose - Point of Care 134 mg/dl (70-99)
[2024-01-28 13:21] LABS: ACT-LR - POC > 397 Seconds (116-155)
--- NOTE | 2024-01-28 14:45 | PTCARENOTE ---
Received patient from PACU after TAVR. Patient is sleepy but easily arousable and oriented with stable neuro status. Maintained on 4L NC with pulse ox of 93%. Patient denies any pain or discomfort. Dressing right groin which was changed in PACU is
dry and intact. Left groin dressing has scant bloody drainage which was marked. Bilateral pedal pulses are palpable. SR on telemetry, monitoring VS as per protocol. Call salmeron in reach, family at the bedside.
--- NOTE | 2024-01-28 15:30 | ITS.CL.TAVR ---
Vineyard Worker - TAVR Report
TAVR PRocedure
Procedure Report:
TRANSCATHETER AORTIC VALVE REPLACEMENT REPORT
Date: 01/28/2024
Referring physician: Bacilio Suarez MD
Operators:
production control technologist: Eliot Kelley MD
Cardiac surgeon: Tarvis Paniagua MD
Procedure:
Conscious sedation was provided by anesthesia. Using a micropuncture technique, 6F sheaths were placed in the LFA and LFV. A transvenous pacemaker was advanced to the RV and excellent thresholds obtained. A pigtail catheter was advanced to the
aortic root where low volume injections were performed to identify an appropriate angle for valve deployment deployment. Access was then obtained in the right femoral artery using a micropuncture technique. A 6Fsheath was placed and angiography
confirmed a BACK GRAY CLOTH WASHER puncture site. Heparin 4000 units was administered. Two perclose sutures were preset using the preclose technique. An 8F sheath was placed in the LFA and an Amplatz super stiff wire advanced into the thoracic aorta. The ileofemoral
vessels were dilated using the Arceo dilator. An Arceo E sheath was advanced into the descending thoracic aorta. Additional heparin 3000U was administered. Crossing the aortic valve proved to be extraordinarily difficult almost certainly due to
the large sinuses of Valsalva. We spent many 3 minutes sessions with multiple catheters including AL-1, JR4, and AL 2 and multiple wires including soft tip straight, 0.035J, and Glidewire. Finally, the valve was crossed with a soft-tipped straight
wire using an AL-1 diagnostic catheter. An Amplatz extra stiff wire with a homemade curve was placed in the LV apex. Balloon aortic valvuloplasty was not performed. An Arceo 26 mm Bryon S3 valve was then advanced through the E sheath and
prepared for transit around the aortic arch. The valve was carefully advanced across the aortic annulus and deployed during rapid ventricular pacing. Echocardiography and aortography confirmed an excellent result with mean gradient 4 mmHg and trace
AI. The valve deployment system was removed. The Arceo E sheath was then removed and hemostasis obtained with the two perclose sutures. Final angiography demonstrated no evidence of ileofemoral dissection/perforation and good runoff below the
common femoral artery. The pacemaker was removed and the LFV sheath secured in position. The LFA sheath was removed using a 6 F angioseal.
Radiation (mGy): 747
DAP (cm2.Gy)): 114
Fluoroscopy time: 27.6
Conclusions: Successful placement of 26 mm Bryon S3 aortic valve via right transfemoral approach with no acute complications.
Copy: Bacilio Suarez MD, Jordon Burt MD
[2024-01-28 16:28] LABS: Glucose - Point of Care 137 mg/dl (70-99)
[2024-01-28] MEDS: ANCEF 5 IV (17:16)
--- NOTE | 2024-01-28 17:16 | PTCARENOTE ---
Scant amount of drainage marked on left groin dressing which has not increased, groin is soft with a strong left pedal pulse. Right groin dressing which was changed in PACU now has a scant amount of drainage which was marked but has not increased.
Right groin is soft with a strong right pedal pulse palpated. Patient denies any pain, in good spirits, VSS. Sitting up in bed with HOB elevated 45 degrees, after 4 hours of lying flat. Family at the bedside, call salmeron in reach.
[2024-01-28] MEDS: GLUCOTROL 10 MG PO (17:17)
[2024-01-28] MEDS: LIPITOR 20 MG PO (17:17)
[2024-01-28] MEDS: URECHOLINE 25 MG PO (18:38)
[2024-01-28] MEDS: CARDURA 2 MG PO (22:27)
[2024-01-28] MEDS: COREG 6.25 MG PO (22:27)
[2024-01-29 03:43] VITALS: BP 124/70
[2024-01-29 03:51] VITALS: BMI 29.4
--- NOTE | 2024-01-29 03:52 | W.PN.CT ---
Addendum entered and electronically signed by Travis Paniagua MD 01/29/24 09:24:
I saw and examined the patient.
The PA's note was reviewed and I agree with the note.
Comment:
No issues overnight. Feels well.
Check echocardiogram
Continue aspirin/Plavix
OOB, IS, ambulate
Discharge planning for hopefully later today
Original Note:
Today's Communication / Plan
-
-pod #1
-no issues overnight
-nsr 60s. No sandhya or pauses
-recent SOBIA stents 10/2023 - will resume ASA and Plavix
-Echo today
-current meds (ASA, Plavix, Lipitor, Cozaar, Coreg, Cardura, Proscar, Januvia, Glipizide). Holding Metformin
-encourage IS, OOB, ambulate
-possible d/c soon
Assessment / Plan
-
- Symptomatic severe - s/p R TF TAVR w/ placement of 26mm SOLOMON 3 valve on 01/28/24, pod #1
- Post-TTE: trace AI (w/ wire across), 4mmHg
- Ischemic cardiomyopathy, Reduced LVEF (~40%)
- CAD w/ Hx of NSTEMI 10/2023 with SOBIA to LAD and D1- on ASA and Plavix preop
- CKD - 3b
- V-Tach w/ syncope s/p Dual-AICD (11/05/2023)
- BPH s/p TURP
- Benign lipomatous neoplasm s/p lipoma excision
- DM II
- HTN/ HLD
- Macular degeneration with retinopathy
Discussed patient care with: Nursing and Care Team
Subjective
Procedure
- s/p R TF TAVR w/ placement of 26mm SOLOMON 3 valve on 01/28/24
-
Date of Service: January 29, 2024
Objective Data
-
PT 15.5 Sec (11.4-14.6) H 01/19/24 09:03
INR 1.25 01/19/24 09:03
APTT 29.9 Sec (23.4-35.0) 01/19/24 09:03
Vital Signs
Vital Signs
Temp Pulse Resp BP Pulse Ox
98.8 F 88 16 140/73 93
01/28/24 23:12 01/28/24 17:00 01/28/24 23:12 01/28/24 17:00 01/28/24 23:12
CT Intake/Output/Weight
01/28/24 01/28/24 01/29/24
06:59 18:59 06:59
Intake Total 1280 / 1280
Output Total 600 / 600
Balance 1280 / 680 -600 / 680
SaO2: 93
Physical Exam
-
General: Awake and AOx3
Cardiovascular: Regular rate & rhythm, No Murmurs and No Rub
Respiratory: Clear
Incision: Other (groins are cdi, soft, nontender, no hematoma b/l)
Extremities: No Edema (2+DP b/l)
Data Reviewed
-
Lab Results: Results Reviewed
Medications: Active Meds Reviewed
Chest X-Ray: Report Reviewed and Image Reviewed
ECG: Report Reviewed and Image Reviewed
[2024-01-29 06:00] VITALS: BMI 29.4
[2024-01-29 06:15] LABS: Hematocrit 31.9 % (39.0-52.0); Hemoglobin 10.7 g/dL (13.0-18.0); Mean Corp Hgb Conc. 33.5 g/dL (33.0-37.0); Mean Corpuscular Hgb 30.5 pg (27.0-31.0); Mean Corpuscular Volume 90.9 fL (80.0-94.0); Platelet Count 137 10^3/uL (130-400); Red Blood Cell Count 3.51 10^6/uL (4.70-6.10); Red Cell Dist. Width 14.5 % (11.5-14.5); White Blood Cell Count 8.8 10^3/uL (4.8-10.8)
[2024-01-29 06:32] LABS: Blood Urea Nitrogen 31 mg/dl (9-20); Calcium 9.4 mg/dl (8.4-10.2); Carbon Dioxide 23 mmol/L (22-30); Chloride 107 mmol/L (98-107); Estimated Creatinine Clearance 38 ml/min; Glucose 149 mg/dl (70-99); Potassium 4.7 mmol/L (3.5-5.1); Sodium 137 mmol/L (135-145); eGFR 54.17
[2024-01-29 07:49] VITALS: BP 107/51
[2024-01-29] MEDS: PROSCAR 5 MG PO (08:17)
[2024-01-29] MEDS: COREG 6.25 MG PO (08:17)
[2024-01-29] MEDS: GLUCOTROL 10 MG PO (08:17)
[2024-01-29] MEDS: COZAAR 12.5 MG PO (08:18)
[2024-01-29] MEDS: ZYLOPRIM 300 MG PO (08:19)
[2024-01-29] MEDS: LOW STRENGTH ASPIRIN 81 MG PO (08:19)
[2024-01-29] MEDS: CARDURA 2 MG PO (08:19)
[2024-01-29] MEDS: PLAVIX 75 MG PO (08:20)
[2024-01-29] MEDS: JANUVIA 50 MG PO (08:20)
--- NOTE | 2024-01-29 09:09 | CM ---
Reviewed chart. Met with Mr. Ortega and his son to review discharge plans. He states he is feeling well and maybe able to go home soon. He states prior to admission he resides alone in a two story townhouse with two steps to enter. He states he has
to go up a full flight of steps to get to bedroom/full bathroom. He states he has a powder room on the first floor. He states prior to admission he was independent with ambulation and adls. He states he does not have any DME in the home. He
states he has a prescription plan. We reviewed a home visit by the Cardiothoracic Transitional Care Nurse. He is agreeable to a home visit. He states he has seven children who are supportive and will check on him when he goes home. Medical
work-up in progress. The discharge plan is to return home with a home visit by the Cardiothoracic Transitional Care Nurse when medically stable.
--- NOTE | 2024-01-29 09:24 | PTCARENOTE ---
Assumed care of pt from night RN. Pt received awake and alert, Ox3. VSS, CM shows NSR/SB 60's, POX 94% on RA. Femoral sites remains CDI, with good CMS throughout both lower limbs. Pt denies any pain or discomfort at this time. Ambulating in
room without any difficulty.
--- NOTE | 2024-01-29 09:47 | W.PN.CD ---
Today's Communication / Plan
-
Stable post TAVR.
Post TAVR echo stable
Stable on telemetry.
Groin sites appear fine.
Patient appears stable for discharge.
Impression / Plan
-
.
TAVR 26 mm Arceo SOLOMON 01/08/2024
-Cath site is fine
-Echo today is stable
-ECG and telemetry stable.
-DAPT
.
CAD stenting of LAD and D1 10/2023
-Continue dual antiplatelet therapy
.
Cardiomyopathy. Stable. Appears euvolemic on exam
.
ICD
Diabetes
Hypertension
Physical Exam
Vital Signs/Labs
Vital Signs
Temp Pulse Resp BP Pulse Ox
97.9 F 84 18 107/51 94
01/29/24 07:47 01/29/24 07:49 01/29/24 07:47 01/29/24 07:49 01/29/24 08:56
01/28/24 01/29/24 01/30/24
06:59 06:59 06:59
Actual Weight 82.6 kg
01/29/24 05:29
01/29/24 05:29
PT 15.5 Sec (11.4-14.6) H 01/19/24 09:03
INR 1.25 01/19/24 09:03
APTT 29.9 Sec (23.4-35.0) 01/19/24 09:03
01/19/24
09:03
Bzk-R-Piuyrjgkxma Pept 23094
Physical Exam
Constitutional: No acute distress
Cardiovascular: Rhythm & rate is regular
Respiratory: Respiratory effort normal
GI: Soft
Neuro/Psych: Alert and Oriented
Data Reviewed
-
Date of Service: January 29, 2024
Medical Decision Making: Reviewed Test Results
Echo: Report Reviewed by me
Medical Tests (PFT, Pathology etc): Report Reviewed by me
Labs: Labs Reviewed by me
[2024-01-29 10:35] VITALS: BP 118/85
[2024-01-29 10:45] VITALS: BP 130/75
[2024-01-29] MEDS: URECHOLINE 25 MG PO (10:49)
--- NOTE | 2024-01-29 11:13 | W.DCSUMMARY ---
Discharge Summary
Discharge Data
Date of Admission: 01/28/24
Date of Discharge: 01/29/24
-
Pending Results: No
Hospital Course
Primary care physician: Jordon Burt
Outpatient distributing clerk: Daniela
Inpatient consultants: DAGOBERTO
Procedures:
1. Right transfemoral transcatheter aortic valve replacement with #26 Arceo S3 valve by Drs. Travis Paniagua & Casey Kelley
Primary Diagnosis:
1. severe aortic stenosis
Secondary Diagnoses:
1. Ischemic cardiomyopathy, Reduced LVEF (~40%)
2. Coronary artery disease with history of non-ST elevation myocardial infarction 08/2023 with drug eluting stents
3. Chronic kidney disease stage IIIb
4. History of Ventricular tachycardia with syncope status post dual chamber AICD 11/05/2023
5. Benign prostatic hypertrophy status post transurethral resection of prostate
6. Qwx-anxpaje-maoplnqaz diabetes
7. Hypertension
8. Hyperlipidemia
9. Macular degeneration with retinopathy
HPI: Patient is an 84-year-old male with complaints of fatigue and known aortic stenosis. Most recent echo demonstrates EF of 40% with severe , peak and mean gradients of 60/37 mmHg with aortic valve area of 0.9 cm�. He was therefore referred
for TAVR. After all preoperative workup was completed he was deemed suitable candidate to undergo the procedure.
Hospital course: He was brought in electively on 01/28/2024 where he underwent a right transfemoral TAVR by Drs. Paniagua and Allie without any periprocedural complications. He was transferred to recovery in stable condition, postop EKG demonstrated
sinus rhythm with no changes from preop. He remained stable overnight, and on postop day 1 follow-up echo demonstrates a well-seated TAVR with a mean gradient of 12 mmHg. He is discharged to home with close follow-up with the transitional care
nurse and [facility].
Home medication changes: Patient is instructed to resume all of his home medications, metformin should be held until Thursday 7/ PM dose.
Discharge Plan
-
Patient Disposition: Home (Routine Discharge)
Discharge Diagnosis/Procedures: TF-TAVR
Condition: Good
Diet: Low Cholesterol and 2 Gram Sodium
Activity: As tolerated
Driving Restrictions: No driving for 1 week
Bathing Restrictions: OK to Shower
Others Tests: 30 Day Follow UP Echocardiogram: 02/29/2024 at 1pm at [facility]
Other Services: Cardiac Rehab
Wound Care: Please do not apply lotions, creams or powders to groin areas. Please monitor for increase pain, swelling, redness or drainage. Please notify your doctor if any occur.
Referrals:
CT Transitional Care Nurse [Outside] - in one to two days
(
The Cardiothoracic Transitional Care Nurse will call you to set up a visit in 1-2 days.)
[facility]. Cardiac Rehab [Outside] (Please call us if once you know your appointment schedule if you would like to participate in the Cardiac Rehab Program- [phone])
Camille Kessler CRNP [Specified Professional Personl] - 02/26/24 8:40 am
Aspen Rodriguez MD [Active] - 02/24/24 8:00 am
Jordon Burt MD [Family Provider] - in four to six weeks (Please make an apppintment in four to six weeks. )
Prescriptions:
New
acetaminophen 325 mg Tablet
650 mg PO Q6HPRN PRN (Reason: HORN, mild pain, or fever >101F) Qty: 0 0RF
Continued
glipizide 10 mg Tablet
10 mg PO BID
allopurinol 300 mg Tablet
300 mg PO DAILY
Januvia 100 mg Tablet
50 mg PO DAILY
bethanechol chloride 25 mg tablet
25 mg PO BID@1000,1900
Rx Instructions:
TAKE 1 TABLET 1 HOUR BEFORE OR 2 HOURS AFTER MEALS ORALLY TWICE A DAY
doxazosin 1 mg tablet
2 mg PO BID
finasteride 5 mg tablet
5 mg PO DAILY
carvedilol 6.25 mg Tablet
6.25 mg PO BID Qty: 60 0RF
atorvastatin 20 mg Tablet
20 mg PO QPM Qty: 30 0RF
clopidogrel 75 mg Tablet
75 mg PO DAILY Qty: 30 0RF
aspirin [Children's Aspirin] 81 mg Tablet,Chewable
81 mg PO DAILY Qty: 60 0RF
losartan 25 mg Tablet
12.5 mg PO DAILY
Held
metformin 500 mg Tablet
500 mg PO TID
Hold Instructions: Resume on 01/30/24. resume PM dose
Discharge Orders:
Discharge Patient (As Directed); Ordered 01/29/24
Ordered By: Lena Lan
Care Plan Goals
Care Plan Goals:
Problem: Readiness for enhanced knowledge related to diagnosis and treatment plan
Goal: Understand your diagnosis and treatment plan needs, including medications if applicable.
Instructions: Know your diagnosis, underlying causes and treatment plan options, including medications if applicable. Consult with your health care team to learn about your diagnosis and treatment plan, including medications if applicable.
Discharge Date and Time
Discharge Date/Time: 01/29/24 11:45
Print Language: LIBYAN
[2024-01-29 11:20] VITALS: BP 118/85; BP 130/75; PULSE 72; O2SAT 93; O2SAT 95
--- NOTE | 2024-01-29 12:04 | PTCARENOTE ---
Pt left with son before I was able to go over his d/c info, luckily his daughter was still here and all d/c info was reviewed with her. All questions answered, gave her the # for unit in case of questions.
== END 2024-01-29 11:45 | disposition home or self-care (01) | DRG 267 ==
LOC: IVU 07:37
PROVIDERS: Internal Medicine Cardiovascular Disease; Physician Assistant Medical; ADMITTING PHYSICIAN Thoracic Surgery (Cardiothoracic Vascular Surgery); ATTENDING PHYSICIAN Thoracic Surgery (Cardiothoracic Vascular Surgery); FAMILY PHYSICIAN Internal Medicine
PROC: 02RF38Z Replacement of Aortic Valve with Zooplastic Tissue, Percutaneous Approach (ICD-10-PCS; 2024-01-28)
DX: I35.0 Nonrheumatic aortic (valve) stenosis (principal); Z00.6 Encounter for examination for normal comparison and control in clinical research program; I47.20 Ventricular tachycardia, unspecified; I25.10 Atherosclerotic heart disease of native coronary artery without angina pectoris; I12.9 Hypertensive chronic kidney disease with stage 1 through stage 4 chronic kidney disease, or unspecified chronic kidney disease; N18.32 Chronic kidney disease, stage 3b; N40.0 Benign prostatic hyperplasia without lower urinary tract symptoms; E11.22 Type 2 diabetes mellitus with diabetic chronic kidney disease; I25.2 Old myocardial infarction
CPT/HCPCS: 93308; 36415; 71045; 71046; 80048; 80053; 81003; 81015; 82248; 82962; 83036; 83880; 85025; 85027; 85610; 85730; 86850; 86900; 86901; 87070; 87077; 87086; 87186; 93005; 93306; 93321; 93325

== ENCOUNTER → 2024-02-02 06:02 | Outpatient (REF) | payer MEDICARE, OTHER, SELFPAY ==
[2024-02-02 11:33] LABS: Glycohemoglobin (HgbA1c) 7.1 % (4.0-5.6)
== END ==
LOC: HWLAB 06:02
PROVIDERS: ATTENDING PHYSICIAN Internal Medicine
DX: E11.9 Type 2 diabetes mellitus without complications (principal)
CPT/HCPCS: 36415; 83036

== ENCOUNTER 2024-02-11 17:11 | Emergency (ER) | payer MEDICARE, OTHER, SELFPAY ==
[2024-02-11 17:13] VITALS: BP 183/88
[2024-02-11 17:45] LABS: % Basophils 0.4 % (0-2); % Eosinophils 0.5 % (0-6); % Immature Granulocytes 0.3 % (0-0.5); % Lymphocytes 9.3 % (20.5-51.1); % Monocytes 9.8 % (1.7-9.3); % Neutrophils 79.7 % (42.2-75.2); Absolute Eosinophils 0.1 10^3/uL (0-0.7); Absolute Lymphocytes 0.9 10^3/uL (1.2-3.4); Absolute Neutrophils 8.1 10^3/uL (1.4-6.5); Hematocrit 35.5 % (39.0-52.0); Mean Corp Hgb Conc. 33.8 g/dL (33.0-37.0); Mean Corpuscular Hgb 31.3 pg (27.0-31.0); Mean Corpuscular Volume 92.4 fL (80.0-94.0); Mean Platelet Volume 11.8 fL (7.4-10.4); Nucleated Red Blood Cells % 0 % (-); Platelet Count 159 10^3/uL (130-400); Red Blood Cell Count 3.84 10^6/uL (4.70-6.10); Red Cell Dist. Width 14.1 % (11.5-14.5); White Blood Cell Count 10.1 10^3/uL (4.8-10.8)
[2024-02-11 17:58] LABS: ALT (SGPT) 17 U/L (0-50); AST (SGOT) 25 U/L (17-59); Albumin 4.6 g/dl (3.5-5.0); Alkaline Phosphatase 86 U/L (38-126); Blood Urea Nitrogen 40 mg/dl (9-20); Carbon Dioxide 24 mmol/L (22-30); Chloride 98 mmol/L (98-107); Glucose 234 mg/dl (70-99); Potassium 4.7 mmol/L (3.5-5.1); Sodium 130 mmol/L (135-145); Total Protein 7.2 g/dl (6.3-8.2); eGFR 49.56
--- NOTE | 2024-02-11 18:51 | ED.GENMED ---
History of Present Illness
General
Chief Complaint: Male Genito-Urinary Symptoms
Source: patient
Exam Limitations: none
Time Seen by Provider: 02/11/24 18:15
History of Present Illness
History of Present Illness:
See MDM
Past History
Past History
ED Past Medical History: HTN and NIDDM
ED Past Surgical History: Tonsilectomy
Social History
Tobacco: Non-smoker
Alcohol: Occasional
Personal:
Living: with family
Family History
Family History: Unable to obtain
Phy Exam
Physical Exam
Physical Exam:
See MDM
Course
Orders/Labs/Results
Orders:
Orders
02/11/24 17:28
Complete Blood Count/With Diff Urgent
Comprehensive Metabolic Panel Urgent
02/11/24 18:24
Straight cath- Treatment ONCE
02/11/24 18:51
Urinalysis Reflex To Culture Urgent
Date Specimen was Collected: 02/11/24
Time Specimen was Collected: 18:28
Urine Microscopic Reflex Cult Urgent
Urine Culture Urgent
NOLBERTO Source: U
Specimen Description:
Date Specimen was Collected: 02/11/24
Time Specimen was Collected: 18:28
02/11/24 19:31
Ciprofloxacin HCl [Cipro] 500 mg PO ONCE ONE
Abnormal Lab Results
02/11/24 02/11/24
17:28 18:51
RBC 3.84 L 10^6/uL
(4.70-6.10)
Hgb 12.0 L g/dL
(13.0-18.0)
Hct 35.5 L %
(39.0-52.0)
MCH 31.3 H pg
(27.0-31.0)
MPV 11.8 H fL
(7.4-10.4)
Absolute Neuts (auto) 8.1 H 10^3/uL
(1.4-6.5)
Absolute Lymphs (auto) 0.9 L 10^3/uL
(1.2-3.4)
Absolute Monos (auto) 1.0 H 10^3/uL
(0.1-0.6)
Neutrophils % 79.7 H %
(42.2-75.2)
Lymphocytes % 9.3 L %
(20.5-51.1)
Monocytes % 9.8 H %
(1.7-9.3)
Sodium 130 L mmol/L
(135-145)
BUN 40 H mg/dl
(9-20)
Creatinine 1.4 H mg/dL
(0.7-1.3)
Glucose 234 H mg/dl
(70-99)
Ur Occult Blood Reflex 1+ A
(Negative)
Leukocyte Esterase Rfl 2+ A
(Negative)
Urine RBC 3-6 A /HPF
(0-2)
Urine WBC (Reflex) 30-40 A /HPF
(0-5)
Urine Bacteria (Reflex) Many A
(Negative)
Urine Albumin (Reflex) 2+ A
(Neg - Trace)
02/11/24 17:28
02/11/24 17:28
Vital Signs
Initial and Last Documented VS:
Initial Vital Signs
Temp Pulse Resp BP Pulse Ox
98.2 F 97 18 183/88 97
02/11/24 17:13 02/11/24 17:13 02/11/24 17:13 02/11/24 17:13 02/11/24 17:13
Last Documented Vital Signs
Temp Pulse Resp BP Pulse Ox
98.2 F 97 18 183/88 97
02/11/24 17:13 02/11/24 17:13 02/11/24 17:13 02/11/24 17:13 02/11/24 17:13
MDM/Problems Addressed
Differential Diagnosis Includes:
HPI and MDM Narrative:
84-year-old male presenting with difficulty urinating. Patient has had urinary retention issues in the past related to his prostate. He follows with urology. He apparently was cleared and no longer required self-catheterization. Over the past
few days, patient realized decreased urination. He started to self catheterize himself again. He came to the emergency department patient. Bedside ultrasound shows approximately 350 mL of urine. Patient has no urinary urgency.
I gave the patient the option of continuing to self cath at home versus placing Miller catheter. Patient is strongly against Miller catheter. We will straight cath him here and obtain urinalysis. Creatinine is at baseline. Patient has opted to
continue to self cath himself at home and states he has supplies. He states he will follow-up with urology
Physical exam
General: Well appearing and non-toxic
HEENT: protecting airway
Neck: appears supple
CV: No evidence of cyanosis
Resp: No accessory muscle use
Abd: Non-distended. Soft and nontender
Extremities: No deformities
Neuro: alert
Psych: Normal affect
Skin: Intact
Problems Addressed including Acute and Chronic Conditions affecting care:
1. Urinary retention
Acuity: acute
Prognosis: stable
Details: Open large prostate. This is being followed by urology. Per patient's request, will placing indwelling Miller. Will straight cath
2. [ ]
Acuity: acute
Prognosis: stable
Details:
3. [ ]
Acuity: acute
Prognosis: stable
Details:
4. [ ]
Acuity: acute
Prognosis: stable
Details:
5. [ ]
Acuity:
Prognosis:
Details:
Updates
Differential Diagnosis (but not limited to): Urinary retention, neurogenic bladder, UTI
Testing considered: Renal ultrasound
Drug therapy (if applicable): OTC meds, please see d/c instruction regarding Rx drugs
Amount and/or Complexity of Data Reviewed
Clinical info obtained from: Patient
External data reviewed: N/A
Labs I independently reviewed (but not limited to): Creatinine at baseline
Radiology: N/A
Pulse Ox: not hypoxic
EKG independently reviewed: N/A
Thread Roller: N/A
Critical Care: N/A
Risk of Complication:
Social Determinants of health: Good social support
Discussed with other providers: N/A
Escalation of Care includes Admit/Obs: After being observed in the Emergency Department, pt stable for discharge.
Occasional wrong word or 'sound a like' substitutions may have occurred due to the inherent limitations of voice recognition software. Read the chart carefully and recognize, using context, where substitutions have occurred.
*Critical Care Note
Total Time (30-74mins, 75-104mins- exclusive of procedures): Not Applicable
ED Attending Note
-
Portions of this chart may have been created with voice recognition software.� Occasional wrong word or��sound alike� substitutions may have occurred due to the inherent limitations of voice recognition software.
Discharge Plan
Departure
Patient Disposition: Home (Routine Discharge)
Date of Disposition: 02/11/24
Time of Disposition: 19:32
Patient with high blood pressure during this ER visit?: Yes
Discharge Problem:
Acute UTI, Acute urinary retention
Instructions: Urinary Tract Infection, Adult ED, BLOOD PRESSURE
Prescriptions:
New
ciprofloxacin HCl 500 mg Tablet
500 mg PO BID Qty: 14 0RF
No Action
metformin 500 mg Tablet
500 mg PO TID
glipizide 10 mg Tablet
10 mg PO BID
allopurinol 300 mg Tablet
300 mg PO DAILY
Januvia 100 mg Tablet
50 mg PO DAILY
bethanechol chloride 25 mg tablet
25 mg PO BID@1000,1900
Rx Instructions:
TAKE 1 TABLET 1 HOUR BEFORE OR 2 HOURS AFTER MEALS ORALLY TWICE A DAY
doxazosin 1 mg tablet
2 mg PO BID
finasteride 5 mg tablet
5 mg PO DAILY
carvedilol 6.25 mg Tablet
6.25 mg PO BID Qty: 60 0RF
atorvastatin 20 mg Tablet
20 mg PO QPM Qty: 30 0RF
clopidogrel 75 mg Tablet
75 mg PO DAILY Qty: 30 0RF
aspirin [Children's Aspirin] 81 mg Tablet,Chewable
81 mg PO DAILY Qty: 60 0RF
losartan 25 mg Tablet
12.5 mg PO DAILY
acetaminophen 325 mg Tablet
650 mg PO Q6HPRN PRN (Reason: HORN, mild pain, or fever >101F) Qty: 0 0RF
Referrals:
UNKNOWN - PT DOES,NOT KNOW [Family Provider] -
Activity Restrictions/Additional Instructions:
Please return for any worsening symptoms.
You may return at any time if you have further concerns.
Please follow up with your doctor at the first available appointment, preferably this week.
Please let your urologist know that you are requiring self-catheterization again. You can self catheterize yourself if you are not urinating over 6-8 hours.
Thank you for choosing [facility].
Interventions
Interventions:
*Risk Screen - Suicide Last Done: 02/11/24 17:15
*General Assessment Last Done: 02/11/24 17:15
*Neglect/Abuse Screening Last Done: 02/11/24 17:15
ED-Male Genitourinary Assessment Last Done: 02/11/24 18:56
Discharge Date and Time
Print Language: PASHTO
[2024-02-11 18:57] LABS: Urine Albumin 2+ (Neg - Trace); Urine Bilirubin Negative (Negative); Urine Character Very Cloudy (Clear); Urine Color Yellow; Urine Glucose Negative (Negative); Urine Ketone Negative (Negative); Urine Leukocyte 2+ (Negative); Urine Nitrite Negative (Negative); Urine Occult Blood 1+ (Negative); Urine Specific Gravity 1.015 (<1.030); Urine Urobilinogen Negative (Neg - 1+)
[2024-02-11 19:20] LABS: Urine Bacteria Many (Negative)
[2024-02-11 19:21] LABS: Urine White Cell 30-40 /HPF (0-5)
[2024-02-11] MEDS: CIPRO 500 MG PO (19:39)
[2024-02-11 19:42] VITALS: BP 168/82
== END 2024-02-11 19:43 | disposition home or self-care (01) ==
LOC: EMR 17:11
PROVIDERS: EMERGENCY PHYSICIAN Student in an Organized Health Care Education/Training Program
DX: N39.0 Urinary tract infection, site not specified (principal); R33.9 Retention of urine, unspecified; E11.9 Type 2 diabetes mellitus without complications; I10 Essential (primary) hypertension
CPT/HCPCS: 99283; 80053; 81003; 81015; 85025; 87077; 87086; 87186

== ENCOUNTER → 2024-02-29 12:44 | Outpatient (REF) | payer MEDICARE, OTHER, SELFPAY | LOC: RCS 12:44 | PROVIDERS: ATTENDING PHYSICIAN Internal Medicine Cardiovascular Disease; FAMILY PHYSICIAN Internal Medicine | DX: I35.0 Nonrheumatic aortic (valve) stenosis (principal) | CPT/HCPCS: 93306 ==

== ENCOUNTER → 2024-03-09 19:19 | Outpatient (REF) | payer MEDICARE, OTHER, SELFPAY ==
[2024-03-09 20:37] LABS: Urine Albumin 2+ (Neg - Trace); Urine Bilirubin Negative (Negative); Urine Character Clear (Clear); Urine Color Yellow; Urine Glucose Negative (Negative); Urine Ketone Negative (Negative); Urine Leukocyte 2+ (Negative); Urine Nitrite Negative (Negative); Urine Occult Blood Negative (Negative); Urine Specific Gravity 1.015 (<1.030); Urine Urobilinogen Negative (Neg - 1+)
[2024-03-09 20:43] LABS: Urine Red Blood Cell 0-2 /HPF (0-2); Urine Squamous Cell 0-2 /LPF (Few); Urine White Cell 80-90 /HPF (0-5)
[2024-03-09 20:44] LABS: Urine Bacteria Moderate (Negative)
== END ==
LOC: CLAB 19:19
PROVIDERS: ATTENDING PHYSICIAN Specialist
DX: N39.0 Urinary tract infection, site not specified (principal)
CPT/HCPCS: 81003; 81015; 87077; 87086

== ENCOUNTER 2024-03-13 06:19 | Emergency (ER) | payer MEDICARE, OTHER, SELFPAY ==
[2024-03-13 06:22] VITALS: BP 176/90
--- NOTE | 2024-03-13 07:45 | ED.GENMED ---
History of Present Illness
General
Chief Complaint: Bowel Problem
Time Seen by Provider: 03/13/24 07:09
History of Present Illness
History of Present Illness:
84-year-old male with history of hypertension, hyperlipidemia, CKD, BPH, aortic stenosis status post valve replacement presenting to the emergency department for constipation. Patient reports that he has not had a full bowel movement for 2 weeks.
Denies issues with constipation in the past. Denies any associate abdominal pain or vomiting. Notes that he has tried OTC medications including stool softener, Colace, oral magnesium. Denies any fever, denies any chest pain or difficulty
breathing. Denies any changes in his diet. Denies additional acute medical complaints
Past History
Past History
ED Past Medical History: HTN and NIDDM
ED Past Surgical History: Tonsilectomy
Social History
Tobacco: Non-smoker
Alcohol: Occasional
Personal:
Living: with family
Family History
Family History: Unable to obtain
Phy Exam
Physical Exam
Physical Exam:
General: Well-appearing, no clinical signs of dehydration, nontoxic and in no acute distress
HEENT: protecting airway
Neck: appears supple
CV: Normal heart rate
Resp: No accessory muscle use, no increased work of breathing
Abd: Soft and non-distended, no tenderness to palpation
Extremities: No deformities, no swelling
Neuro: alert, no focal neurologic deficit
: deferred
Rectal: deferred
Psych: Normal affect
Skin: Intact
Course
Orders/Labs/Results
Orders:
Orders
03/13/24 07:14
Enema- Treatment ONCE
Type: Milk of Molasses
Vital Signs
Initial and Last Documented VS:
Initial Vital Signs
Temp Pulse Resp BP Pulse Ox
97.6 F 82 22 176/90 97
03/13/24 06:22 03/13/24 06:22 03/13/24 06:22 03/13/24 06:22 03/13/24 06:22
Last Documented Vital Signs
Temp Pulse Resp BP Pulse Ox
97.6 F 82 22 176/90 97
03/13/24 06:22 03/13/24 06:22 03/13/24 06:22 03/13/24 06:22 03/13/24 06:22
MDM/Problems Addressed
MDM/Problems Addressed:
84-year-old male presenting for 2 weeks of constipation. Vital signs on arrival are significant for mild hypertension.
On exam, patient is well-appearing, no acute distress or discomfort. Unremarkable abdominal exam, soft and nondistended, nontender. Patient denies any additional GI complaints. Without present concern for any obstructive pathology. Suspect
uncomplicated constipation. Will try enema and reassess
08:30 -patient with successful bowel movement. At this time feel that he is stable for discharge. Return precautions discussed and patient verbalized understanding. Prescription for MiraLAX provided
*Critical Care Note
Total Time (30-74mins, 75-104mins- exclusive of procedures): Not Applicable
ED Attending Note
-
Portions of this chart may have been created with voice recognition software.� Occasional wrong word or��sound alike� substitutions may have occurred due to the inherent limitations of voice recognition software.
Discharge Plan
Departure
Prescriptions:
No Action
metformin 500 mg Tablet
500 mg PO TID
glipizide 10 mg Tablet
10 mg PO BID
allopurinol 300 mg Tablet
300 mg PO DAILY
Januvia 100 mg Tablet
50 mg PO DAILY
bethanechol chloride 25 mg tablet
25 mg PO BID@1000,1900
Rx Instructions:
TAKE 1 TABLET 1 HOUR BEFORE OR 2 HOURS AFTER MEALS ORALLY TWICE A DAY
doxazosin 1 mg tablet
2 mg PO BID
finasteride 5 mg tablet
5 mg PO DAILY
carvedilol 6.25 mg Tablet
6.25 mg PO BID Qty: 60 0RF
atorvastatin 20 mg Tablet
20 mg PO QPM Qty: 30 0RF
clopidogrel 75 mg Tablet
75 mg PO DAILY Qty: 30 0RF
aspirin [Children's Aspirin] 81 mg Tablet,Chewable
81 mg PO DAILY Qty: 60 0RF
losartan 25 mg Tablet
12.5 mg PO BID
acetaminophen 325 mg Tablet
650 mg PO Q6HPRN PRN (Reason: HORN, mild pain, or fever >101F) Qty: 0 0RF
polyethylene glycol 3350 [Miralax] 17 gram Powder In Packet
17 g PO DAILY
Eliquis 5 mg Tablet
5 mg PO BID
Referrals:
Neftali Stuart Jr., MD [Family Provider] -
Interventions
Interventions:
*Risk Screen - Suicide Last Done: 03/13/24 06:22
*General Assessment Last Done: 03/13/24 06:30
*Neglect/Abuse Screening Last Done: 03/13/24 06:22
ED- Fall Risk Assessment Last Done: 03/13/24 06:30
*ED COVID-19 Vaccine History Last Done: 03/13/24 06:30
JE-Fljrpt-Mafpkaspzh Assessment Last Done: 03/13/24 06:30
Discharge Date and Time
Print Language: GREENLANDIC
[2024-03-13 08:00] VITALS: BP 142/86
== END 2024-03-13 08:51 | disposition home or self-care (01) ==
LOC: EMR 06:19
PROVIDERS: EMERGENCY PHYSICIAN Student in an Organized Health Care Education/Training Program
DX: K59.00 Constipation, unspecified (principal); I12.9 Hypertensive chronic kidney disease with stage 1 through stage 4 chronic kidney disease, or unspecified chronic kidney disease; N18.9 Chronic kidney disease, unspecified
CPT/HCPCS: 99282

== ENCOUNTER 2024-03-16 06:34 | Emergency (ER) | payer MEDICARE, OTHER, SELFPAY ==
[2024-03-16 06:36] VITALS: BP 150/76
--- NOTE | 2024-03-16 07:30 | ED.GENMED ---
History of Present Illness
General
Chief Complaint: Bowel Problem
Source: patient
Exam Limitations: none
Time Seen by Provider: 03/16/24 07:02
Nursing documentation reviewed up to this point in time: agreed with
History of Present Illness
History of Present Illness:
84-year-old male presenting to the emergency department today with concerns of decreasing bowel movements over the past few days. Had a large bowel movement this morning and 1 upon arrival here no longer has any complaints no abdominal pain no
nausea vomiting or additional concerns.
Past History
Past History
ED Past Medical History: HTN and NIDDM
ED Past Surgical History: Tonsilectomy
Social History
Tobacco: Non-smoker
Alcohol: Occasional
Personal:
Living: with family
Family History
Family History: Unable to obtain
Review of Systems
Review of Systems
Allergies reviewed?: Yes
All Other Systems: ROS reviewed and negative except as documented in HPI and ROS
Phy Exam
Physical Exam
Physical Exam:
GENERAL: Alert , in no apparent distress
EYE: pupils equal and reactive
NECK: Supple, no significant adenopathy.
ENT: o/p clr, mmm.
CARDIAC: Regular rate and rhythm .
LUNGS: Clear breath sounds bilaterally, no acute respiratory distress, no wheezes/rales/rhonchi
ABDOMEN: Soft, without focal tenderness, no r/g, no cvat
NEUROLOGICAL: Alert and oriented, no focal neuro deficits
SKIN: Warm and dry, skin intact.
MUSCULOSKELETAL: No edema, well perfused.
PSYCH: Normal and appropriate interaction.
Course
Vital Signs
Initial and Last Documented VS:
Initial Vital Signs
Temp Pulse Resp BP Pulse Ox
98.1 F 84 20 150/76 98
03/16/24 06:36 03/16/24 06:36 03/16/24 06:36 03/16/24 06:36 09/11/24 06:36
Last Documented Vital Signs
Temp Pulse Resp BP Pulse Ox
98.1 F 84 20 150/76 98
03/16/24 06:36 03/16/24 06:36 03/16/24 06:36 03/16/24 06:36 03/16/24 06:36
MDM/Problems Addressed
MDM/Problems Addressed:
84-year-old male initially presenting with concerns of constipation had a large bowel movement here now completely asymptomatic no abdominal pain at any point no nausea or vomiting. Patient written for bowel regiment otherwise stable for discharge.
Advised for primary care follow-up. Return precautions given.
*Critical Care Note
Total Time (30-74mins, 75-104mins- exclusive of procedures): Not Applicable
ED Attending Note
-
Portions of this chart may have been created with voice recognition software.� Occasional wrong word or��sound alike� substitutions may have occurred due to the inherent limitations of voice recognition software.
Discharge Plan
Departure
Patient Disposition: Home (Routine Discharge)
Date of Disposition: 03/16/24
Time of Disposition: 07:30
Patient with high blood pressure during this ER visit?: No
Condition: Good
Covid-19: Not Applicable
Discharge Problem:
Constipation
Instructions: Constipation, Adult (DC)
Prescriptions:
New
psyllium husk [Metamucil] 0.4 gram capsule
0.4 g PO DAILY 14 Days Qty: 14 0RF
docusate sodium [Colace] 100 mg capsule
100 mg PO DAILY Qty: 14 0RF
No Action
metformin 500 mg Tablet
500 mg PO TID
glipizide 10 mg Tablet
10 mg PO BID
allopurinol 300 mg Tablet
300 mg PO DAILY
Januvia 100 mg Tablet
50 mg PO DAILY
bethanechol chloride 25 mg tablet
25 mg PO BID@1000,1900
Rx Instructions:
TAKE 1 TABLET 1 HOUR BEFORE OR 2 HOURS AFTER MEALS ORALLY TWICE A DAY
doxazosin 1 mg tablet
2 mg PO BID
finasteride 5 mg tablet
5 mg PO DAILY
carvedilol 6.25 mg Tablet
6.25 mg PO BID Qty: 60 0RF
atorvastatin 20 mg Tablet
20 mg PO QPM Qty: 30 0RF
clopidogrel 75 mg Tablet
75 mg PO DAILY Qty: 30 0RF
aspirin [Children's Aspirin] 81 mg Tablet,Chewable
81 mg PO DAILY Qty: 60 0RF
losartan 25 mg Tablet
12.5 mg PO BID
acetaminophen 325 mg Tablet
650 mg PO Q6HPRN PRN (Reason: HORN, mild pain, or fever >101F) Qty: 0 0RF
polyethylene glycol 3350 [Miralax] 17 gram Powder In Packet
17 g PO DAILY
Eliquis 5 mg Tablet
5 mg PO BID
polyethylene glycol 3350 [Miralax] 17 gram/dose powder
4 g PO DAILY PRN (Reason: Constipation) Qty: 119 0RF
Activity Restrictions/Additional Instructions:
You came to the emergency department today with concerns of constipation. Please take the prescribed medications as well as magnesium citrate as needed. Return to the emergency department for any worsening, new or concerning symptoms.
Interventions
Interventions:
*Risk Screen - Suicide Last Done: 03/16/24 06:36
*Neglect/Abuse Screening Last Done: 03/16/24 06:36
Discharge Date and Time
Print Language: [place]
[2024-03-16 07:46] VITALS: BP 136/67
== END 2024-03-16 07:51 | disposition home or self-care (01) ==
LOC: EMR 06:34
PROVIDERS: EMERGENCY PHYSICIAN Student in an Organized Health Care Education/Training Program; FAMILY PHYSICIAN Internal Medicine
DX: K59.00 Constipation, unspecified (principal); I10 Essential (primary) hypertension; I35.0 Nonrheumatic aortic (valve) stenosis; E78.5 Hyperlipidemia, unspecified; E11.22 Type 2 diabetes mellitus with diabetic chronic kidney disease; N18.9 Chronic kidney disease, unspecified; I12.9 Hypertensive chronic kidney disease with stage 1 through stage 4 chronic kidney disease, or unspecified chronic kidney disease; N40.0 Benign prostatic hyperplasia without lower urinary tract symptoms; I25.2 Old myocardial infarction; Z79.01 Long term (current) use of anticoagulants; Z79.84 Long term (current) use of oral hypoglycemic drugs; Z95.810 Presence of automatic (implantable) cardiac defibrillator
CPT/HCPCS: 99283

== ENCOUNTER → 2024-03-23 11:42 | Outpatient (REF) | payer MEDICARE, OTHER, SELFPAY ==
[2024-03-23 16:37] LABS: Free T4 1.33 ng/dl (0.78-2.19)
[2024-03-23 16:51] LABS: TSH 0.23 uIU/ml (0.47-4.68)
== END ==
LOC: HWLAB 11:42
PROVIDERS: ATTENDING PHYSICIAN Internal Medicine
DX: K59.00 Constipation, unspecified (principal)
CPT/HCPCS: 36415; 84439; 84443

== ENCOUNTER → 2024-04-18 06:06 | Outpatient (REF) | payer MEDICARE, OTHER, SELFPAY ==
[2024-04-18 09:34] LABS: Blood Urea Nitrogen 25 mg/dl (9-20); Calcium 9.2 mg/dl (8.4-10.2); Carbon Dioxide 27 mmol/L (22-30); Chloride 101 mmol/L (98-107); Glucose 148 mg/dl (70-99); Potassium 4.3 mmol/L (3.5-5.1); Sodium 139 mmol/L (135-145); Uric Acid 3.3 mg/dl (3.5-8.5); eGFR > 60.00
== END ==
LOC: HWLAB 06:06
PROVIDERS: ATTENDING PHYSICIAN Specialist; FAMILY PHYSICIAN Internal Medicine
DX: I10 Essential (primary) hypertension (principal); E87.1 Hypo-osmolality and hyponatremia; N18.31 Chronic kidney disease, stage 3a; M10.9 Gout, unspecified
CPT/HCPCS: 36415; 80048; 84550

== ENCOUNTER 2024-05-11 10:08 | Emergency (ER) | payer MEDICARE, OTHER, SELFPAY ==
[2024-05-11 10:20] VITALS: BP 102/75
[2024-05-11 11:15] LABS: % Basophils 0.2 % (0-2); % Eosinophils 1.6 % (0-6); % Immature Granulocytes 0.5 % (0-0.5); % Lymphocytes 14.2 % (20.5-51.1); % Neutrophils 72.5 % (42.2-75.2); Absolute Eosinophils 0.1 10^3/uL (0-0.7); Absolute Lymphocytes 0.9 10^3/uL (1.2-3.4); Absolute Monocytes 0.7 10^3/uL (0.1-0.6); Absolute Neutrophils 4.6 10^3/uL (1.4-6.5); Hematocrit 28.9 % (39.0-52.0); Hemoglobin 9.7 g/dL (13.0-18.0); Mean Corp Hgb Conc. 33.6 g/dL (33.0-37.0); Mean Corpuscular Volume 92.3 fL (80.0-94.0); Mean Platelet Volume 11.9 fL (7.4-10.4); Nucleated Red Blood Cells % 0 % (-); Platelet Count 121 10^3/uL (130-400); Red Blood Cell Count 3.13 10^6/uL (4.70-6.10); Red Cell Dist. Width 14.2 % (11.5-14.5); White Blood Cell Count 6.4 10^3/uL (4.8-10.8)
--- NOTE | 2024-05-11 11:20 | ED.GENMED ---
History of Present Illness
General
Chief Complaint: Skin Problem
Source: patient
Exam Limitations: none
Time Seen by Provider: 05/11/24 10:42
Nursing documentation reviewed up to this point in time: agreed with
History of Present Illness
History of Present Illness:
Patient presents to ED secondary to persistent right lower leg swelling with 'soreness' x 1 week, after injuring his leg when he bent down and lost balance. Patient is currently taking Eliquis daily. Patient states that he did not immediately
have swelling, but it developed a day later. Since then, swelling has been persistent, but not worsening. Swelling, however, has spread downwards to his ankle and foot as well. Patient was evaluated by his primary care physician this morning and
was referred to ED for an evaluation, with concern for development of abscess. Denies fever or chills. Denies nausea or vomiting. Denies increasing redness proximally to his thigh. Denies previous history of skin infection. Denies loss of
sensation or weakness. Patient has been able to ambulate since the fall, despite continual soreness. Patient has been icing the affected leg intermittently since the fall.
Past History
Past History
ED Past Medical History: HTN and NIDDM
ED Past Surgical History: Tonsilectomy
Social History
Tobacco: Non-smoker
Alcohol: Occasional
Personal:
Living: with family
Family History
Family History: Unable to obtain
Review of Systems
Review of Systems
Allergies reviewed?: Yes
All Other Systems: ROS reviewed and negative except as documented in HPI and ROS
Constitutional: Reports no symptoms; Denies fever or chills
ABD/GI: Reports no symptoms
Musculoskeletal: Reports edema
Skin: Reports other (Right lower leg swelling with redness)
Neurological: Reports no symptoms
Phy Exam
Physical Exam
Physical Exam:
Physical Exam
General: no apparent distress, not acutely ill. afebrile
Head: nc/at. eomi
Neck: supple. no meningeal signs.
Neuro: alert and oriented x3. no focal neurological deficits
Skin: an approx 2cm x 2cm hematoma noted over right medial prox tibia without open wound. mildly tender to palpation, with swelling extending down to foot. no proximal streaking. normal range of motion of right knee.
Psychiatric: well kept. interactive and cooperative
Extremities: no edema. no calf tenderness.
Course
Orders/Labs/Results
Orders:
Orders
05/11/24 10:59
Basic Metabolic Panel Urgent
Complete Blood Count/With Diff Urgent
PTT Urgent
Prothrombin Time Urgent
05/11/24 11:18
Lower Ext Right w Contrast CT [CT Lower Ext W/iv Cont Rt] Urgent
Comment:
Reason For Exam: Right medial knee swelling/erythema
Abnormal Lab Results
05/11/24
10:59
RBC 3.13 L 10^6/uL
(4.70-6.10)
Hgb 9.7 L g/dL
(13.0-18.0)
Hct 28.9 L %
(39.0-52.0)
Plt Count 121 L 10^3/uL
(130-400)
MPV 11.9 H fL
(7.4-10.4)
Absolute Lymphs (auto) 0.9 L 10^3/uL
(1.2-3.4)
Absolute Monos (auto) 0.7 H 10^3/uL
(0.1-0.6)
Lymphocytes % 14.2 L %
(20.5-51.1)
Monocytes % 11.0 H %
(1.7-9.3)
PT 15.5 H Sec
(11.4-14.6)
BUN 39 H mg/dl
(9-20)
Creatinine 1.4 H mg/dL
(0.7-1.3)
Glucose 251 H mg/dl
(70-99)
05/11/24 10:59
05/11/24 10:59
Vital Signs
Initial and Last Documented VS:
Initial Vital Signs
Temp Pulse Resp BP Pulse Ox
98.6 F 79 18 102/75 98
05/11/24 10:20 05/11/24 10:20 05/11/24 10:20 05/11/24 10:20 05/11/24 10:20
Last Documented Vital Signs
Temp Pulse Resp BP Pulse Ox
99.5 F 71 18 155/73 99
05/11/24 12:55 05/11/24 12:55 05/11/24 12:55 05/11/24 12:55 05/11/24 12:55
MDM/Problems Addressed
MDM/Problems Addressed:
CT LE report reviewed - subcutaneous hematoma noted.
As patient is afebrile, normal blood work, and without significant acute distress, decision made to treat patient's hematoma conservatively, especially with patient currently on Eliquis. Will recommend ice application/warm compress, leg elevation,
along with close PCP follow-up as an outpatient.
*Critical Care Note
Total Time (30-74mins, 75-104mins- exclusive of procedures): Not Applicable
ED Attending Note
-
Portions of this chart may have been created with voice recognition software.� Occasional wrong word or��sound alike� substitutions may have occurred due to the inherent limitations of voice recognition software.
Discharge Plan
Departure
Patient Disposition: Home (Routine Discharge)
Date of Disposition: 05/11/24
Time of Disposition: 13:11
Patient with high blood pressure during this ER visit?: Yes
Condition: Good
Discharge Problem:
Hematoma
Instructions: Hematoma
Prescriptions:
No Action
metformin 500 mg Tablet
500 mg PO TID
glipizide 10 mg Tablet
10 mg PO BID
allopurinol 300 mg Tablet
300 mg PO DAILY
Januvia 100 mg Tablet
50 mg PO DAILY
bethanechol chloride 25 mg tablet
25 mg PO BID@1000,1900
Rx Instructions:
TAKE 1 TABLET 1 HOUR BEFORE OR 2 HOURS AFTER MEALS ORALLY TWICE A DAY
doxazosin 1 mg tablet
2 mg PO BID
finasteride 5 mg tablet
5 mg PO DAILY
carvedilol 6.25 mg Tablet
6.25 mg PO BID Qty: 60 0RF
atorvastatin 20 mg Tablet
20 mg PO QPM Qty: 30 0RF
clopidogrel 75 mg Tablet
75 mg PO DAILY Qty: 30 0RF
aspirin [Children's Aspirin] 81 mg Tablet,Chewable
81 mg PO DAILY Qty: 60 0RF
losartan 25 mg Tablet
12.5 mg PO BID
acetaminophen 325 mg Tablet
650 mg PO Q6HPRN PRN (Reason: HORN, mild pain, or fever >101F) Qty: 0 0RF
polyethylene glycol 3350 [Miralax] 17 gram Powder In Packet
17 g PO DAILY
Eliquis 5 mg Tablet
5 mg PO BID
polyethylene glycol 3350 [Miralax] 17 gram/dose powder
4 g PO DAILY PRN (Reason: Constipation) Qty: 119 0RF
psyllium husk [Metamucil] 0.4 gram capsule
0.4 g PO DAILY 14 Days Qty: 14 0RF
docusate sodium [Colace] 100 mg capsule
100 mg PO DAILY Qty: 14 0RF
Referrals:
Jordon Burt MD [Family Provider] -
Activity Restrictions/Additional Instructions:
As discussed, please follow-up with your primary care physician for reevaluation over the next 1 week. In the meantime, recommend ice/warm compress application, along with leg elevation. Please consider returning to ED with significant worsening
symptoms, i.e. fever/worsening swelling/pain/inability to ambulate.
Interventions
Interventions:
*Risk Screen - Suicide Last Done: 05/11/24 13:22
*General Assessment Last Done: 05/11/24 13:22
*Neglect/Abuse Screening Last Done: 05/11/24 13:22
*ED COVID-19 Vaccine History Last Done: 05/11/24 10:20
*Nursing Disposition Last Done: 05/11/24 13:22
Discharge Date and Time
Discharge Date/Time: 05/11/24 13:23
Print Language: MACANESE
[2024-05-11 11:23] LABS: INR 1.17; PT 15.5 Sec (11.4-14.6)
[2024-05-11 11:24] LABS: APTT 29.5 Sec (23.4-35.0); Blood Urea Nitrogen 39 mg/dl (9-20); Calcium 9.1 mg/dl (8.4-10.2); Carbon Dioxide 26 mmol/L (22-30); Chloride 102 mmol/L (98-107); Glucose 251 mg/dl (70-99); Potassium 4.5 mmol/L (3.5-5.1); Sodium 140 mmol/L (135-145); eGFR 49.56
[2024-05-11 12:55] VITALS: BP 155/73
== END 2024-05-11 13:23 | disposition home or self-care (01) ==
LOC: EMR 10:08
PROVIDERS: EMERGENCY PHYSICIAN Emergency Medicine; FAMILY PHYSICIAN Internal Medicine
DX: S80.11XA Contusion of right lower leg, initial encounter (principal); W19.XXXA Unspecified fall, initial encounter; E11.9 Type 2 diabetes mellitus without complications; I10 Essential (primary) hypertension; Z79.01 Long term (current) use of anticoagulants
CPT/HCPCS: 99284; 73701; 80048; 85025; 85610; 85730; Q9967

== ENCOUNTER → 2024-09-05 09:36 | Outpatient (REF) | payer MEDICARE, OTHER, SELFPAY ==
[2024-09-05 13:02] LABS: Uric Acid 4.9 mg/dl (3.5-8.5)
== END ==
LOC: HWLAB 09:36
PROVIDERS: ATTENDING PHYSICIAN Internal Medicine
DX: I10 Essential (primary) hypertension (principal); M10.9 Gout, unspecified; E11.9 Type 2 diabetes mellitus without complications
CPT/HCPCS: 36415; 84550

== ENCOUNTER → 2024-09-09 10:24 | Outpatient (REF) | payer MEDICARE, OTHER, SELFPAY ==
[2024-09-09 11:58] LABS: Glycohemoglobin (HgbA1c) 10.7 % (4.0-5.6)
== END ==
LOC: HWLAB 10:24
PROVIDERS: ATTENDING PHYSICIAN Internal Medicine
DX: E11.9 Type 2 diabetes mellitus without complications (principal)
CPT/HCPCS: 36415; 83036

== ENCOUNTER → 2024-11-14 06:03 | Outpatient (REF) | payer MEDICARE, OTHER, SELFPAY ==
[2024-11-14 09:58] LABS: ALT (SGPT) 21 U/L (0-50); AST (SGOT) 24 U/L (17-59); Albumin 4.4 g/dl (3.5-5.0); Alkaline Phosphatase 80 U/L (38-126); Blood Urea Nitrogen 37 mg/dl (9-20); Calcium 9.6 mg/dl (8.4-10.2); Carbon Dioxide 25 mmol/L (22-30); Chloride 107 mmol/L (98-107); Glucose 132 mg/dl (70-99); Potassium 4.8 mmol/L (3.5-5.1); Sodium 140 mmol/L (135-145); Total Bilirubin 0.7 mg/dl (0.2-1.3); Total Protein 6.7 g/dl (6.3-8.2); eGFR 42.22
== END ==
LOC: HWLAB 06:03
PROVIDERS: ATTENDING PHYSICIAN Internal Medicine Medical Oncology; FAMILY PHYSICIAN Internal Medicine
DX: E87.1 Hypo-osmolality and hyponatremia (principal)
CPT/HCPCS: 36415; 80053

== ENCOUNTER 2025-03-01 10:39 | Emergency (ER) | payer MEDICARE, OTHER, SELFPAY ==
[2025-03-01 10:41] VITALS: BP 176/83
--- NOTE | 2025-03-01 10:57 | ED.GENMED ---
History of Present Illness
General
Chief Complaint: Bowel Problem
Source: patient
Exam Limitations: none
Time Seen by Provider: 03/01/25 10:55
Nursing documentation reviewed up to this point in time: agreed with
History of Present Illness
History of Present Illness:
85-year-old male with history of TAVR, AICD, cardiac stents, on Eliquis, HTN, HLD, ND, BPH, NIDDM presents with difficulty in bowel movements, described as having hard stools leading to blockage, occurring approximately once in a while. The patient
reports the last bowel movement was five days ago. He has been taking docusate and polyethylene glycol (MirALAX) once daily. No nausea, vomiting, abdominal pain, chest pain, or breathing difficulty were reported. The patient stated a similar issue
led to a previous visit when he received an enema. He states he takes daily stool softeners and Miralax. He gave himself a fleets enema this morning with no stool results. He denies abdominal pain. His appetite has been good.
Past History
Past History
ED Past Medical History: HTN and NIDDM
ED Past Surgical History: Tonsilectomy
Social History
Tobacco: Non-smoker
Alcohol: Occasional
Personal:
Living: with family
Family History
Family History: Unable to obtain
Review of Systems
Review of Systems
Allergies reviewed?: Yes
All Other Systems: ROS reviewed and negative except as documented in HPI and ROS
ABD/GI: Reports constipated; Denies abdominal pain, nausea, vomiting, diarrhea, bloody stools, black stools or anorexia
Phy Exam
Physical Exam
Physical Exam:
GENERAL: No acute distress. A&Ox3.
CONSTITUTIONAL: Afebrile.
EYES: clear, conjunctivae normal
ENMT: moist mucus membranes, Pharynx nl
RESPIRATORY: Regular respirations, nonlabored, lungs clear.
CARDIOVASCULAR: Regular rate and rhythm, no murmurs, no rubs.
GI: Soft, nontender, normal BS
Rectal: No stool in rectal vault
MUSCULOSKELETAL: Moves with ease. Well perfused.
SKIN: Warm, dry, pink
PSYCH: Normal mood and affect. Well kept, interactive and appropriate
NEUROLOGIC: Awake, alert and oriented. No focal neurological deficits
Course
Orders/Labs/Results
Orders:
Orders
03/01/25 11:17
Obstruct Series W/PA Chest [CR Obstruct Series W/pa Chest] Urgent
Comment:
Reason For Exam: No BM x 5 days
03/01/25 11:20
CBC/With Diff [Complete Blood Count/With Diff] Urgent
Comprehensive Metabolic Panel Urgent
03/01/25 12:48
Magnesium Citrate [Citroma] 300 ml PO ONCE ONE
Abnormal Lab Results
03/01/25
11:20
RBC 3.77 L 10^6/uL
(4.70-6.10)
Hgb 11.5 L g/dL
(13.0-18.0)
Hct 34.7 L %
(39.0-52.0)
MPV 11.5 H fL
(7.4-10.4)
Absolute Lymphs (auto) 1.0 L 10^3/uL
(1.2-3.4)
Lymphocytes % 17.7 L %
(20.5-51.1)
Monocytes % 9.7 H %
(1.7-9.3)
Chloride 108 H mmol/L
(98-107)
BUN 28 H mg/dl
(9-20)
Creatinine 1.5 H mg/dL
(0.7-1.3)
Glucose 169 H mg/dl
(70-99)
03/01/25 11:20
03/01/25 11:20
Vital Signs
Initial and Last Documented VS:
Initial Vital Signs
Temp Pulse Resp BP Pulse Ox
98.7 F 78 18 176/83 97
03/01/25 10:41 03/01/25 10:41 03/01/25 10:41 03/01/25 10:41 03/01/25 10:41
Last Documented Vital Signs
Temp Pulse Resp BP Pulse Ox
98.7 F 60 20 172/78 99
03/01/25 10:41 03/01/25 13:10 03/01/25 13:10 03/01/25 13:10 03/01/25 13:10
MDM/Problems Addressed
Differential Diagnosis Includes:
Constipation, bowel obstruction, fecal impaction
MDM/Problems Addressed:
85-year-old male with history of TAVR, AICD, cardiac stents, on Eliquis, HTN, HLD, ND, BPH, NIDDM presents with difficulty in bowel movements, described as having hard stools leading to blockage, occurring approximately once in a while. The patient
reports the last bowel movement was five days ago. He has been taking docusate and polyethylene glycol (MirALAX) once daily. No nausea, vomiting, abdominal pain, chest pain, or breathing difficulty were reported. The patient stated a similar issue
led to a previous visit when he received an enema. He states he takes daily stool softeners and Miralax. He gave himself a fleets enema this morning with no stool results. He denies abdominal pain. His appetite has been good.
CBC with no clinically significant abnormality
CMP with no clinically significant abnormality, consistent with his CKD
12:45 p.m.
Obstructive series radiology report read:
IMPRESSION:
1. No acute cardiopulmonary process.
2. Non-specific bowel gas pattern without signs of obstruction.
3. Severe diffuse colonic stool burden likely reflects constipation.
Is reassuring that the abdomen is soft, nontender patient has not had any abdominal pain. No stool in rectal vault so enema not indicated
Pt reassured, plan: Mag Citrate and continue Miralx daily and stool softener
*Pulse Oximetry
SaO2: 97
Oxygen Mode of Delivery: Room air
Patient hypoxic: not evaluated
*Critical Care Note
Total Time (30-74mins, 75-104mins- exclusive of procedures): Not Applicable
ED Attending Note
-
Portions of this chart may have been created with voice recognition software.� Occasional wrong word or��sound alike� substitutions may have occurred due to the inherent limitations of voice recognition software.
Discharge Plan
Departure
Patient Disposition: Home (Routine Discharge)
Date of Disposition: 03/01/25
Time of Disposition: 12:50
Patient with high blood pressure during this ER visit?: No
Condition: Good
Discharge Problem:
Constipation
Instructions: Constipation, Adult (DC)
Prescriptions:
No Action
metformin 500 mg Tablet
500 mg PO TID
glipizide 10 mg Tablet
10 mg PO BID
allopurinol 300 mg Tablet
300 mg PO DAILY
Januvia 100 mg Tablet
50 mg PO DAILY
bethanechol chloride 25 mg tablet
25 mg PO BID@1000,1900
Rx Instructions:
TAKE 1 TABLET 1 HOUR BEFORE OR 2 HOURS AFTER MEALS ORALLY TWICE A DAY
doxazosin 1 mg tablet
2 mg PO BID
finasteride 5 mg tablet
5 mg PO DAILY
carvedilol 6.25 mg Tablet
6.25 mg PO BID Qty: 60 0RF
atorvastatin 20 mg Tablet
20 mg PO QPM Qty: 30 0RF
clopidogrel 75 mg Tablet
75 mg PO DAILY Qty: 30 0RF
aspirin [Children's Aspirin] 81 mg Tablet,Chewable
81 mg PO DAILY Qty: 60 0RF
losartan 25 mg Tablet
12.5 mg PO BID
acetaminophen 325 mg Tablet
650 mg PO Q6HPRN PRN (Reason: HORN, mild pain, or fever >101F) Qty: 0 0RF
polyethylene glycol 3350 [Miralax] 17 gram Powder In Packet
17 g PO DAILY
Eliquis 5 mg Tablet
5 mg PO BID
polyethylene glycol 3350 [Miralax] 17 gram/dose powder
4 g PO DAILY PRN (Reason: Constipation) Qty: 119 0RF
psyllium husk [Metamucil] 0.4 gram capsule
0.4 g PO DAILY 14 Days Qty: 14 0RF
docusate sodium [Colace] 100 mg capsule
100 mg PO DAILY Qty: 14 0RF
Referrals:
Jordon Burt MD [Family Provider, Internal Medicine] - As needed
Activity Restrictions/Additional Instructions:
As we discussed, there is no sign of obstruction in your bowel. You do have a lot of stool throughout your colon and you are constipated
An enema will not help at this point because you have no stool on your rectal exam
Drink the entire bottle of magnesium citrate and continue daily MiraLAX as well as daily stool softeners until your bowels become more regular.
Interventions
Interventions:
*Risk Screen - Suicide Last Done: 03/01/25 10:41
*General Assessment Last Done: 03/01/25 10:41
*Neglect/Abuse Screening Last Done: 03/01/25 10:41
*ED- Fall Risk Assessment Last Done: 03/01/25 11:08
*ED COVID-19 Vaccine History Last Done: 03/01/25 11:08
*Nursing Disposition Last Done: 03/01/25 13:10
WP-Xajzwi-Pywnprajlp Assessment Last Done: 03/01/25 11:08
Discharge Date and Time
Discharge Date/Time: 03/01/25 13:16
Print Language: LAO
[2025-03-01 11:06] VITALS: BP 172/84
[2025-03-01 11:07] VITALS: BMI 26.2
[2025-03-01 11:33] LABS: Hematocrit 34.7 % (39.0-52.0); Hemoglobin 11.5 g/dL (13.0-18.0); Mean Corp Hgb Conc. 33.1 g/dL (33.0-37.0); Mean Corpuscular Volume 92.0 fL (80.0-94.0); Nucleated Red Blood Cells % 0 % (-); Platelet Count 133 10^3/uL (130-400); Red Cell Dist. Width 13.2 % (11.5-14.5)
[2025-03-01 12:04] LABS: ALT (SGPT) 21 U/L (0-50); AST (SGOT) 24 U/L (17-59); Albumin 4.5 g/dl (3.5-5.0); Alkaline Phosphatase 70 U/L (38-126); Blood Urea Nitrogen 28 mg/dl (9-20); Calcium 9.4 mg/dl (8.4-10.2); Carbon Dioxide 22 mmol/L (22-30); Chloride 108 mmol/L (98-107); Estimated Creatinine Clearance 36 ml/min; Glucose 169 mg/dl (70-99); Potassium 4.3 mmol/L (3.5-5.1); Sodium 137 mmol/L (135-145); Total Protein 6.8 g/dl (6.3-8.2); eGFR 45.34
[2025-03-01] MEDS: CITROMA 300 ML PO (13:09)
[2025-03-01 13:10] VITALS: BP 172/78
== END 2025-03-01 13:16 | disposition home or self-care (01) ==
LOC: EMR 10:39
PROVIDERS: Registered Nurse; EMERGENCY PHYSICIAN Emergency Medicine; FAMILY PHYSICIAN Internal Medicine
DX: K59.00 Constipation, unspecified (principal); E11.9 Type 2 diabetes mellitus without complications; I10 Essential (primary) hypertension; E78.5 Hyperlipidemia, unspecified; I25.2 Old myocardial infarction; N40.0 Benign prostatic hyperplasia without lower urinary tract symptoms; Z79.01 Long term (current) use of anticoagulants; Z79.84 Long term (current) use of oral hypoglycemic drugs; Z79.02 Long term (current) use of antithrombotics/antiplatelets; Z79.82 Long term (current) use of aspirin; Z95.2 Presence of prosthetic heart valve; Z95.5 Presence of coronary angioplasty implant and graft; Z95.810 Presence of automatic (implantable) cardiac defibrillator
CPT/HCPCS: 99284; 74022; 80053; 85025

== ENCOUNTER → 2025-03-16 06:05 | Outpatient (REF) | payer MEDICARE, OTHER, SELFPAY ==
[2025-03-16 10:26] LABS: Glycohemoglobin (HgbA1c) 7.9 % (4.0-5.6)
[2025-03-16 11:08] LABS: Albumin 4.6 g/dl (3.5-5.0); Blood Urea Nitrogen 40 mg/dl (9-20); Calcium 9.5 mg/dl (8.4-10.2); Carbon Dioxide 24 mmol/L (22-30); Chloride 107 mmol/L (98-107); Glucose 120 mg/dl (70-99); HDL Cholesterol 61 mg/dl; LDL Cholesterol, Calculated 44 mg/dl; Potassium 4.7 mmol/L (3.5-5.1); Sodium 140 mmol/L (135-145); Very Low Density Lipoprotein 11 mg/dl (0-30); eGFR 28.63
== END ==
LOC: HWRCS 06:05
PROVIDERS: ATTENDING PHYSICIAN Internal Medicine; FAMILY PHYSICIAN Internal Medicine
DX: I25.10 Atherosclerotic heart disease of native coronary artery without angina pectoris (principal); Z95.2 Presence of prosthetic heart valve; I25.5 Ischemic cardiomyopathy; E11.8 Type 2 diabetes mellitus with unspecified complications
CPT/HCPCS: 36415; 80061; 80069; 83036; 93306

== ENCOUNTER → 2025-03-28 06:17 | Outpatient (REF) | payer MEDICARE, OTHER, SELFPAY ==
[2025-03-28 10:31] LABS: Albumin 4.4 g/dl (3.5-5.0); Blood Urea Nitrogen 47 mg/dl (9-20); Calcium 9.4 mg/dl (8.4-10.2); Carbon Dioxide 24 mmol/L (22-30); Chloride 108 mmol/L (98-107); Glucose 156 mg/dl (70-99); Potassium 4.4 mmol/L (3.5-5.1); Sodium 139 mmol/L (135-145); eGFR 39.02
[2025-03-28 11:46] LABS: Glycohemoglobin (HgbA1c) 7.8 % (4.0-5.6)
== END ==
LOC: HWLAB 06:17
PROVIDERS: ATTENDING PHYSICIAN Internal Medicine
DX: E11.9 Type 2 diabetes mellitus without complications (principal)
CPT/HCPCS: 36415; 80069; 83036

== ENCOUNTER → 2025-06-15 06:39 | Outpatient (REF) | payer MEDICARE, OTHER, SELFPAY ==
[2025-06-15 08:14] LABS: Albumin 4.3 g/dl (3.5-5.0); Blood Urea Nitrogen 37 mg/dl (9-20); Calcium 9.5 mg/dl (8.4-10.2); Carbon Dioxide 21 mmol/L (22-30); Chloride 108 mmol/L (98-107); Glucose 157 mg/dl (70-99); Potassium 4.8 mmol/L (3.5-5.1); Sodium 137 mmol/L (135-145); eGFR 39.02
[2025-06-15 09:44] LABS: Glycohemoglobin (HgbA1c) 8.0 % (4.0-5.9)
== END ==
LOC: REG 06:39
PROVIDERS: ATTENDING PHYSICIAN Internal Medicine
DX: E11.21 Type 2 diabetes mellitus with diabetic nephropathy (principal); E11.9 Type 2 diabetes mellitus without complications
CPT/HCPCS: 36415; 80069; 83036